=== PATIENT | female | born 1945 | race African-American/Black ===

== ENCOUNTER 2019-03-06 17:47 | Emergency (ER) | payer OTHER ==
[2019-03-06 17:55] VITALS: BMI 29.2
[2019-03-06] MEDS ORDERED: diphenhydrAMINE HCL 25 MG CAPSULE (FP) PO ONE ×2 (18:41→19:03)
[2019-03-06] MEDS ORDERED: BACITRACIN 15 GM TUBE TOPICAL OINTMENT TP ONE (18:42)
[2019-03-06] MEDS ORDERED: predniSONE 20 MG TABLET (UD) PO ONE (18:42)
--- NOTE | 2019-03-06 18:47 | PDOC ---
History of Present Illness - General Chief Complaint: Allergic Reaction Stated Complaint: SWOLLEN FACE Time Seen by Provider: 03/06/19 18:17 History Source: Patient, Family Exam Limitations: Language Barrier (Creole) - History of Present Illness Initial Comments: 03/06/19 18:46 Leslie Veronica is a 73F with PMH NIDDM and HTN presenting with allergic reaction to hair product. Patient was at [employer] to get a wig fitted 3 days [employer], used a new wig glue to fix wig to head. Began having headache, skin irritation, and facial swelling that worsened over the course of the last 3 days. L eyelid swelling spread to both eyes. Has had a headache that keeps her up at night and has decreased her appetite. Has not had itchiness or throat swelling, no hives or rash. Denies chest pain, SOB, wheezing, abd pain, LE edema, urinary sx, N/V, C/D, changes to vision/hearing. Past History - Past Medical History Allergies/Adverse Reactions: Allergies Allergy/AdvReac Type Severity Reaction Status Date / Time No Known Allergies Allergy Verified 03/06/19 17:55 Home Medications: Ambulatory Orders Atorvastatin Ca [Lipitor] 40 mg PO HS 03/06/19 Chlorthalidone 25 mg PO DAILY 03/06/19 Lisinopril [Prinivil -] 40 mg PO DAILY 03/06/19 Metoprolol Succinate 50 mg PO DAILY 03/06/19 metFORMIN HCL [Metformin HCl] 500 mg PO BID 03/06/19 COPD: No - Suicide/Smoking/Psychosocial Hx Smoking History: Never smoked Hx Alcohol Use: No Drug/Substance Use Hx: No Review of Systems - Review of Systems Able to Perform ROS?: Yes (translated by family) Is the patient limited Thai proficient: Yes Constitutional: No: Symptoms Reported HEENTM: No: Blurred Vision, Hearing Loss, Throat Swelling, Difficulty Swallowing Respiratory: No: Cough, Shortness of Breath, Wheezing Cardiac (ROS): No: Chest Pain, Edema, Lightheadedness, Palpitations ABD/GI: Yes: Poor Appetite. No: Constipated, Diarrhea, Nausea, Vomiting : No: Burning, Dysuria, Discharge, Frequency, Flank Pain, Hematuria, Incontinence Musculoskeletal: No: Symptoms Reported Integumentary: Yes: Erythema, Lesions, Lumps, Rash. No: Pruritus Neurological: Yes: Headache. No: Numbness, Paresthesia Endocrine: No: Symptoms Reported Hematologic/Lymphatic: No: Symptoms Reported All Other Systems: Reviewed and Negative *Physical Exam - Vital Signs Last Vital Signs Temp Pulse Resp BP Pulse Ox 99.0 F 96 H 16 185/90 H 99 03/06/19 17:52 03/06/19 17:52 03/06/19 17:52 03/06/19 17:52 03/06/19 17:52 - Physical Exam General Appearance: Yes: Nourished, Appropriately Dressed. No: Apparent Distress, Mild Distress HEENT: positive: EOMI, TREY, Normal Voice, Symmetrical, Pharynx Normal. negative: Scleral Icterus (R), Scleral Icterus (L), Muffled/Hoarse voice, Tonsillar Exudate, Tonsillar Erythema, Nasal Congestion Neck: positive: Trachea midline, Normal Thyroid, Supple. negative: Tender, Decreased range of motion, Lymphadenopathy (R), Lymphadenopathy (L) Respiratory/Chest: positive: Lungs Clear, Normal Breath Sounds. negative: Chest Tender, Respiratory Distress, Crackles, Rales, Rhonchi Cardiovascular: positive: Regular Rhythm, Regular Rate. negative: Murmur Gastrointestinal/Abdominal: positive: Normal Bowel Sounds, Soft. negative: Tender, Organomegaly Musculoskeletal: positive: Normal Inspection. negative: CVA Tenderness Extremity: positive: Normal Capillary Refill, Normal Inspection, Normal Range of Motion Integumentary: positive: Other (Has contact dermatitis lesions and desquamation to forehead on hairline with focal, rasied, tender lesion to L forehead. No other rash notable. No LE edema. Facial periorbital edema to both eyes.). negative: Jaundice, Hives Neurologic: positive: Fully Oriented, Alert, Normal Mood/Affect, Normal Response Medical Decision Making - Medical Decision Making 03/06/19 18:46 Leslie Veronica is a 73F with PMH NIDDM and HTN presenting with allergic reaction to hair product. Patient presentation not concerning for anaphylaxis or airway compromise, reaction started 2 days ago and is mostly contact dermatitis to face with some mild periorbital edema. Patient has not tried Benadryl, will give some now with 40mg prednisone and ice with bacitracin to cover lesion on forehead. Will reassess. 03/06/19 19:07 Patient has hx HTN, took Tylenol and medication for HTN earlier today and has no headache at this time. Says she has not been sleeping well which may be cause of headache. Low concern for hypertensive urgency. 03/06/19 19:36 Plan to send home with PCP f/u and wound care instructions. Signed out to Dr. Gonzalez. *DC/Admit/Observation/Transfer Diagnosis at time of Disposition: Contact dermatitis Qualifiers: Contact dermatitis type: irritant Contact dermatitis trigger: cosmetics Qualified Code(s): L24.3 - Irritant contact dermatitis due to cosmetics - Discharge Dispostion Disposition: HOME Condition at time of disposition: Stable Decision to Admit order: No - Referrals Referrals: Rubia Solis MD [Primary Care Provider] - - Patient Instructions Printed Discharge Instructions: DI for Adverse Drug Reaction -- Allergic Additional Instructions: Today you were evaluated for an allergic reaction to a hair product. Please avoid this hair product in the future! Please contact your chairman president and chief executive officer and figure out what the ingredient is that caused the reaction if you can. You can buy bacitracin cream, a type of antibiotic, at the drug store to put on the rash to keep it from getting infected. Please use Benadryl at night as directed on the box as needed for swelling of the eyes. Please follow-up with you primary doctor in the next 3 days for further care. If you experience trouble breathing, worsening headache, fever, nausea, vomiting , changes to your vision, or any other new or concerning symptoms, please return to the emergency room immediately. - Post Discharge Activity
--- NOTE | 2019-03-06 18:59 | PDOC ---
Documentation entered by Dave Costa SCRIBE, acting as scribe for Willow Mireles MD. Willow Mireles MD: This documentation has been prepared by the Igor estrada Daniel, SCRIBE, under my direction and personally reviewed by me in its entirety. I confirm that the documentation accurately reflects all work, treatment, procedures, and medical decision making performed by me. Attending Attestation - Resident Resident Name: Suresh Gastelum - ED Attending Attestation I have performed the following: I have examined & evaluated the patient, The case was reviewed & discussed with the resident, I agree w/resident's findings & plan, Exceptions are as noted - HPI HPI: 03/06/19 18:46 73-year-old female had a new wig applied on Thursday she had an adhesive hair product applied to her forehead to keep her wig in place and developed a contact dermatitis 03/06/19 18:50 The patient is a 73 year old female with a past medical history of HTN and non insulin dependent diabetes here today for evaluation of allergic reaction. The patient reports that she had a wig placed on thursday (03/04/19) and glue was used. She reports that developed an abscess on her left forehead which had purulent discharge. She also notes some facial edema and a headache. Patient denies lightheadedness. Denies fever, chills. Denies chest pain, shortness of breath. Denies nausea, vomiting, diarrhea, abdominal pain. Allergies: NKA PCP: Rubia Solis - Physicial Exam PE: 03/06/19 18:50 GENERAL: Well-appearing, well-nourished. No apparent distress. HEENT: Normocephalic, atraumatic. PERRL, EOM intact. CARDIOVASCULAR: Normal S1, S2. Regular rate and rhythm. PULMONARY: Clear to auscultation bilaterally. ABDOMEN: Soft, non-distended, non-tender. EXTREMITIES: Normal ROM in all four extremities. No gross deformities. SKIN: +left forehead desquamation. +periorbital edema. Warm, dry. NEUROLOGICAL: No focal neurological deficits. - Medical Decision Making 03/06/19 18:57 imp: contact dermatitis to hair product pt given bacitracin and benadrly
[2019-03-06] MEDS ORDERED: predniSONE 20 MG TABLET (UD) ONE (19:03)
[2019-03-06] MEDS ORDERED: BACITRACIN 0.9 GM PACKET ONE (19:04)
[2019-03-06 19:43] VITALS: BP 154/83; PULSE 90; TEMP 96
== END 2019-03-06 20:25 | disposition home or self-care (01) ==
LOC: JER 17:47
DX: T49.4X1A Poisoning by keratolytics, keratoplastics, and other hair treatment drugs and preparations, accidental (unintentional), initial encounter (principal); L24.5 Irritant contact dermatitis due to other chemical products; Y92.59 Other trade areas as the place of occurrence of the external cause
CPT/HCPCS: 99282-25

== ENCOUNTER 2019-03-13 01:05 | Inpatient (IN) | payer OTHER ==
[2019-03-13] MEDS ORDERED: VANCOMYCIN 1,000 MG in DEXTROSE 5%-WATER - 250 ML IVPB ONE (01:58)
[2019-03-13] MEDS ORDERED: CLINDAMYCIN 600MG PREMIX IVPB 600 MG/50 ML BAG IVPB ONE ×2 (01:58→02:06)
[2019-03-13] MEDS ORDERED: MORPHINE SULFATE 2 MG/ML VIAL IVPUSH ONE ×3 (01:58→17:54)
[2019-03-13] MEDS ORDERED: VANCOMYCIN 1 GRAM (PRE-DOCKED) 1,000 MG/250 ML BAG IVPB ONE (02:05)
[2019-03-13] MEDS ORDERED: MORPHINE SULFATE 2 MG/ML VIAL ONE (02:05)
[2019-03-13 02:28] LABS: BASO % 0.8 % (0-2.0); HEMATOCRIT 36.2 % (32.4-45.2); HEMOGLOBIN 11.6 GM/dL (10.7-15.3); LYMPH % 6.1 % (8-40); MEAN CELL VOLUME 84.6 fl (80-96); MEAN PLT VOLUME 10.2 fl (7.5-11.1); MONO % 10.6 % (3.8-10.2); NEUT % 82.5 % (42.8-82.8); PLATELET COUNT 411 K/MM3 (134-434); RBC 4.28 M/mm3 (3.60-5.2); RDW 13.1 % (11.6-15.6); WHITE BLOOD COUNT 15.1 K/mm3 (4.0-10.0)
--- NOTE | 2019-03-13 02:41 | PDOC ---
Attending Attestation - Resident Resident Name: Honey Elena - ED Attending Attestation I have performed the following: I have examined & evaluated the patient, The case was reviewed & discussed with the resident, I agree w/resident's findings & plan
--- NOTE | 2019-03-13 03:37 | PDOC ---
Documentation entered by Nik Cunningham SCRIBE, acting as scribe for Joy Garcia MD. Joy Garcia MD: This documentation has been prepared by the Marisa estrada Elijah, SCRIBE, under my direction and personally reviewed by me in its entirety. I confirm that the documentation accurately reflects all work, treatment, procedures, and medical decision making performed by me. Attending Attestation - Resident Resident Name: Honey Elena - ED Attending Attestation I have performed the following: I have examined & evaluated the patient, The case was reviewed & discussed with the resident, I agree w/resident's findings & plan - HPI HPI: 03/13/19 01:53 Patient is a 73 year old female with a significant past medical history of DM and HTN who presents to the ED with a Headache and worsening infection. Patient reports that she had bought a wig and began to develop an infection. Patient was seen in the where she was given steroids for the face swelling that she presented with. Patient then went to an Urgent Care x3 days later as the patient felt as if the infection was spreading and had drainage. The patient was given clindamycin. At this time the patient notes that she has felt as if the infections has not improved and that her headache has kept her from sleeping prompting the visit to the ED. Denies Fever, nausea and vomiting. Allergies: NKA PCP: - Physicial Exam PE: 03/13/19 03:36 Agree with resident exam. Pt has a boggy infection on her left frontal scalp. Pt may have a tinea capitis in the area, on top of the cellulitis. She has otherwise normal exam. - Medical Decision Making 03/13/19 03:36 Pt has a WBC count of 15; she will have a repeat chemistry drawn, as she had hemolyzed specimen. 03/13/19 03:38 Pt will be admitted because she neds IV abx, as she failed outpatient therapy with oral abx. She had been taking clinda x 2 days with no improvement.
--- NOTE | 2019-03-13 04:08 | PN ---
Teaching Attending Note Name of Resident: Elian Jaramillo ATTENDING PHYSICIAN STATEMENT I saw and evaluated the patient. I reviewed the resident's note and discussed the case with the resident. I agree with the resident's findings and plan as documented. SUBJECTIVE: Patient is a 73 year old woman with a PMH of NIDDM and HTN who presents to the ER with a headache and worsening infection. Patient reports that she had bought a wig and used a glue to attach the wig to her scalp. She wore it for about 2 weeks then noticed an area of redness in the left frontal scalp. It developed an abscess with associated edema. Patient was seen at [facility] on March 06 where she was given steroids, bacitracin and benadryl. Patient then went to an Urgent Care x3 days later as the patient felt as if the infection was spreading and had drainage. The patient was given clindamycin. At this time the patient notes that she has felt as if the infection has not improved and that her headache has kept her from sleeping prompting the visit to the ER. She has vision impairment in the left eye but no photophobia. Denies fever, nausea, vomiting, SOB, chest pain, abdomnal pain, dysuria or diarrhea. OBJECTIVE: Alert Vital Signs Period Temp Pulse Resp BP Sys/Marie Pulse Ox Last 24 Hr 97.7 F 90-93 18-18 139-150/68-69 98-98 HEENT: No Jaundice, eye redness or discharge, PERRLA, EOMI. A 2.5 inch x 1 inch raised area of cellulitis on left frontal scalp/upper face with islands of necrotic tissue with pus drainage. Mild edema of left side of face. Scar left side of mouth from childhood injury. External ears are normal and hearing is grossly intact. No nasal discharge. Neck: Supple, nontender. No palpable adenopathy or thyromegaly. No JVD Chest: Good effort. Clear to auscultation and percussion. Heart: Regular. No S3, rub or murmur Abdomen: Not distended, soft, nontender and no HSM. No rebound or guarding. Normal bowel sounds. Ext: Peripheral pulses intact. No leg edema. Skin: Warm and dry. No petechiae, rash or ecchymosis. Neuro: Alert. Oriented x3. CN 2-12 grossly intact. Sensation grossly intact in all four extremities and DTR are symmetric. Psych: Appropriate mood and affect. Good insight. Home Medications Medication Instructions Recorded Atorvastatin Ca [Lipitor] 40 mg PO HS 03/06/19 Chlorthalidone 25 mg PO DAILY 03/06/19 Lisinopril [Prinivil -] 40 mg PO DAILY 03/06/19 Metoprolol Succinate 50 mg PO DAILY 03/06/19 metFORMIN HCL [Metformin HCl] 500 mg PO BID 03/06/19 Current Medications Generic Name Dose Route Start Last Admin Trade Name Kalli PRN Reason Stop Dose Admin Atorvastatin Calcium 40 mg 03/13/19 22:00 Lipitor - PO HS ERIC Chlorthalidone 25 mg 03/13/19 10:00 [place] - PO DAILY ERIC Enoxaparin Sodium 40 mg 03/13/19 10:00 Lovenox - SQ DAILY ERIC Piperacillin Sod/Tazobactam 50 mls @ 100 mls/hr 03/13/19 04:45 Sod 3.375 gm/ Dextrose IVPB Q8H-IV ERIC Protocol Piperacillin Sod/Tazobactam 50 mls @ 100 mls/hr 03/13/19 04:45 Sod 3.375 gm/ Dextrose IVPB Q8H-IV ERIC Insulin Aspart 1 vial 03/13/19 07:00 Novolog Vial Sliding Scale - SQ ACHS [facility] Protocol Lisinopril 40 mg 03/13/19 10:00 Prinivil PO DAILY ERIC Metoprolol Succinate 50 mg 03/13/19 10:00 Toprol Xl - PO DAILY [facility] Abnormal Lab Results 03/13/19 03/13/19 02:16 04:00 WBC 15.1 H Absolute Neuts (auto) 12.4 H Lymphocytes % 6.1 L Monocytes % 10.6 H Sodium 131 L Chloride 94 L Anion Gap 7 L BUN 26.9 H Random Glucose 521 H* Alkaline Phosphatase 132 H Total Protein 6.3 L Albumin 2.4 L ASSESSMENT AND PLAN: 1. Scalp/Facial cellulitis and Abscess- Will get wound culture, CT face and scalp and treat with IV Vancomycin and Zosyn. Provide daily wound care and consult ID. 2. Hypoalbuminemia - Possibly due to combined effects of malnutrition and inflammation associated with comorbid chronic conditions. Will ensure adequate dietary protein intake and also consult statistical programmer. Will get urinalysis to rule out proteinuria. 3. Uncontrolled DM Will give a stat dose of SQ insulin and hydrate with IV NS. Will hold the home diabetes drugs and implement sliding scale insulin regimen. Provide comprehensive diabetes care with patient teaching and counseling about the importance of adherence to prescribed diabetes regimen, euglycemia, eye care and foot care. 4. Hypertension - Restart suitable outpatient antihypertensive drugs when clinically appropriate. Revise regimen to ensure [id number] excellent BP control and nurses' association counselor patient on the injurious effects of uncontrolled hypertension. Nonpharmacologic measures to control hypertension like weight loss , salt restriction and exercise discussed. Importance of adherence to treatment regimen and attainment of normotension emphasized. 5. DVT prophylaxis - Lovenox 40 mg SQ q 24 hours. 6. Advance directives - Full code
[2019-03-13 04:42] LABS: ALBUMIN 2.4 g/dl (3.4-5.0); BLOOD UREA NITROGEN 26.9 mg/dL (7-18); POTASSIUM 4.7 mmol/L (3.5-5.1); TOT PROT 6.3 g/dl (6.4-8.2)
--- NOTE | 2019-03-13 05:04 | PDOC ---
History of Present Illness - General Chief Complaint: Edema Stated Complaint: HEADACHE/HEAD CYST Time Seen by Provider: 03/13/19 01:35 - History of Present Illness Initial Comments: 03/13/19 04:55 73yo F hx DM and HTN presents from home c/o worsening headache and infection on forehead despite outpt abx. Pt wore new wig on 03/03/19 and had subsequent headache, face swelling, and skin irritation. Pt came to this ED on 03/06 and was given benadryl and bacitracin for dermatitis. Per note, pt had facial periorbital edema b/l, contact dermatitis lesions and desquamation of forehead on hairline with raised lesion of L forehead. Pt used bacitracin as instructed, but pt developed redness, pus, and warmth of wound and went to Urgent Care on the . Per daughter, pt was diagnosed with an infection and given muciprocin ointment and clindamycin. Pt has been taking Clindamycin 2x/day, although she was prescribed it every 8 hours. Pt has also been taking tylenol and advil for the head pain with minimal temporary improvement. Pain is constant, stabbing, overlying wound. Face swelling has resolved but pus and wound has gotten bigger. Denies F/C, N/V, dizziness, vision changes, CP, SOB, abdominal pain, D/C , blood in stool, dysuria, hematuria, numbness/tingling, weakness. Past History - Past Medical History Allergies/Adverse Reactions: Allergies Allergy/AdvReac Type Severity Reaction Status Date / Time No Known Allergies Allergy Verified 03/13/19 01:27 Home Medications: Ambulatory Orders Atorvastatin Ca [Lipitor] 40 mg PO HS 03/06/19 Chlorthalidone 25 mg PO DAILY 03/06/19 Lisinopril [Prinivil -] 40 mg PO DAILY 03/06/19 Metoprolol Succinate 50 mg PO DAILY 03/06/19 metFORMIN HCL [Metformin HCl] 500 mg PO BID 03/06/19 COPD: No Diabetes: Yes HTN: Yes - Suicide/Smoking/Psychosocial Hx Smoking History: Never smoked Information on smoking cessation initiated: Yes Hx Alcohol Use: No Drug/Substance Use Hx: No Review of Systems - Review of Systems Comments:: 03/13/19 05:43 Constitutional: Negative for chills, fever, fatigue. HENT: Positive for L forehead infected wound, pus drainage, erythema, warmth, and pain. Negative for sore throat, rhinorrhea, congestion. Eyes: Negative for visual disturbance. Respiratory: Negative for shortness of breath, cough, and wheezing. Cardiovascular: Negative for chest pain, palpitations, and leg swelling. Gastrointestinal: Negative for abdominal pain, blood in stool, constipation, diarrhea, nausea, and vomiting. Genitourinary: Negative for dysuria, flank pain, and hematuria. Musculoskeletal: Negative for myalgias, back pain, and neck pain. Skin: Positive for L forehead infected wound, pus drainage, erythema, warmth, and pain. Neurological: Negative for light-headedness, dizziness, syncope, weakness, numbness and headaches. Psychiatric/Behavioral: Negative for behavioral problems and confusion. *Physical Exam - Vital Signs Last Vital Signs Temp Pulse Resp BP Pulse Ox 97.7 F 93 H 18 150/69 98 03/13/19 01:24 03/13/19 01:56 03/13/19 01:56 03/13/19 01:56 03/13/19 01:56 - Physical Exam Comments: 03/13/19 05:46 Gen: Alert, NAD, comfortable-appearing. HEENT: +minimal edema L forehead, 1"x2" raised area of erythema and warmth with purulence with patches of healing tissue and necrotic tissue on L forehead. PERRL, EOMI, MMM, NCAT. No conjunctival pallor. Sclera are non-icteric. Oropharynx is clear. CV: Regular rate and rhythm. No murmurs, rubs, or gallops. PULM: No resp distress. CTAB, no wheezes, rales, or rhonchi. ABD: soft, NT/ND, no rebound tenderness or guarding, no CVA tenderness. BACK: No TTP of c/t/l-spine. No step-offs or deformities. MSK: No bony deformities. 2+ pulses in all extremities. NEURO: AAOx3. PERRL. No gross CN deficits. Strength and sensation grossly intact throughout. EXTREMITIES: No cyanosis. No clubbing. No edema. No calf tenderness. PSYCH: Normal mood and thought pattern. SKIN: Warm and dry. Normal capillary refill. No jaundice. Heart Score/ECG Review - ECG Impressions Comment:: 03/13/19 05:54 207: Sinus rhythm, 91bpm, no TWIs, no ST elevations or depressions, normal axis ED Treatment Course - LABORATORY CBC & Chemistry Diagram: 03/13/19 02:16 03/13/19 04:00 - ADDITIONAL ORDERS Additional order review: Laboratory Results 03/13/19 03/13/19 04:00 02:16 Sodium 131 L Cancelled Potassium 4.7 Cancelled Chloride 94 L Cancelled Carbon Dioxide 30 Cancelled Anion Gap 7 L Cancelled BUN 26.9 H Cancelled Creatinine 1.0 Cancelled Est GFR (CKD-EPI)AfAm 63.82 Cancelled Est GFR (CKD-EPI)NonAf 55.07 Cancelled Random Glucose 521 H* Cancelled Calcium 9.0 Cancelled Total Bilirubin 1.0 Cancelled AST 30 Cancelled ALT 23 Cancelled Alkaline Phosphatase 132 H Cancelled Total Protein 6.3 L Cancelled Albumin 2.4 L Cancelled 03/13/19 02:16 RBC 4.28 MCV 84.6 MCHC 32.0 RDW 13.1 MPV 10.2 Neutrophils % 82.5 Lymphocytes % 6.1 L Monocytes % 10.6 H Eosinophils % 0.0 Basophils % 0.8 - RADIOLOGY Radiology Studies Ordered: Category Date Time Status CHEST X-RAY PORTABLE* [RAD] Stat Radiology 03/13/19 01:58 Taken - Medications Given in the ED: ED Medications Discontinued Medications Generic Name Dose Route Start Last Admin Trade Name Freq PRN Reason Stop Dose Admin Clindamycin Phosphate 600 mg in 50 mls @ 100 mls/hr 03/13/19 01:58 03/13/19 02:23 Cleocin 600 Mg Premix Ivpb - IVPB 03/13/19 02:27 100 mls/hr ONCE ONE Administration Vancomycin HCl 1,000 mg/ 250 mls @ 250 mls/hr 03/13/19 01:58 03/13/19 03:02 Dextrose IVPB 03/13/19 02:57 250 mls/hr ONCE ONE Administration Protocol Morphine Sulfate 2 mg 03/13/19 01:58 03/13/19 02:23 Morphine Sulfate IVPUSH 03/13/19 01:59 2 mg ONCE ONE Administration Medical Decision Making - Medical Decision Making 03/13/19 04:56 73yo F hx DM and HTN presents from home c/o worsening headache and infection on forehead despite outpt abx. Pt wore new wig on 03/03/19 and had subsequent headache, face swelling, and skin irritation. Pt came to this ED on 03/06 and was given benadryl and bacitracin for dermatitis. Per note, pt had facial periorbital edema b/l, contact dermatitis lesions and desquamation of forehead on hairline with raised lesion of L forehead. Pt used bacitracin as instructed, but pt developed redness, pus, and warmth of wound and went to Urgent Care on the . Per daughter, pt was diagnosed with an infection and given muciprocin ointment and clindamycin. Pt has been taking Clindamycin 2x/day, although she was prescribed it every 8 hours. Pt has also been taking tylenol and advil for the head pain with minimal temporary improvement. Pain is constant, stabbing, overlying wound. Face swelling has resolved but pus and wound has gotten bigger. Denies F/C, N/V, dizziness, vision changes, CP, SOB, abdominal pain, D/C , blood in stool, dysuria, hematuria, numbness/tingling, weakness. Hemodynamically stable, afebrile. Cellulitis failing outpatient abx. No s/s of bacteremia. No s/s of necrotizing fasciitis. Some pus drainage but not enough to indicate I&D. -EKG -CBC, CMP, wound cx -CXR -Vanc, Clindamycin, Morphine -Dispo: admit for IV abx pending w/u 03/13/19 05:42 EKG reviewed. CXR reviewed. Labs reviewed. Of note, WBC 15.1, Na 131, Gluc 521. Pt admitted. *DC/Admit/Observation/Transfer Diagnosis at time of Disposition: Cellulitis - Discharge Dispostion Condition at time of disposition: Stable Decision to Admit order: Yes - Referrals Referrals: Rubia Solis MD [Primary Care Provider] - - Patient Instructions - Post Discharge Activity
[2019-03-13] MEDS ORDERED: PIPERACILLIN/TAZOB 3.375 GM 3.375 GM/50 ML BAG IVPB ONE (05:07)
[2019-03-13] MEDS ORDERED: INSULIN (NOVOLOG) ASPART 100 UNITS/ML 10ML VIAL SQ ONE ×2 (05:11→17:55)
[2019-03-13] MEDS: PIPERACILLIN/TAZOB 3.375 GM 3.375 GM in DEXTROSE 5%-WATER - 50 ML IVPB SCH ×3 (05:12→18:17)
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
[2019-03-13 05:56] LABS: PHOSPHOROUS 2.9 mg/dL (2.5-4.9)
[2019-03-13] MEDS ORDERED: INSULIN SLIDING SCALE (NOVOLOG) 1 VIAL SQ SCH (07:00)
[2019-03-13 08:52] LABS: BLOOD UREA NITROGEN 22.1 mg/dL (7-18); CALCIUM 9.8 mg/dL (8.5-10.1); POTASSIUM 4.4 mmol/L (3.5-5.1)
--- NOTE | 2019-03-13 09:37 | EKG ---
Test Reason : Blood Pressure : / mmHG Vent. Rate : 091 BPM Atrial Rate : 091 BPM P-R Int : 140 ms QRS Dur : 082 ms QT Int : 354 ms P-R-T Axes : 064 052 061 degrees QTc Int : 435 ms SINUS RHYTHM WITH FUSION COMPLEXES POSSIBLE LEFT ATRIAL ENLARGEMENT BORDERLINE ECG NO PREVIOUS ECGS AVAILABLE Confirmed by DESEAN LINK, RUTHY ([id number]) on 03/13/2019 9:36:49 AM Referred By: Confirmed By:RUTHY ANTON MD
[2019-03-13 09:41] VITALS: BMI 27.3
[2019-03-13] MEDS ORDERED: PT OWN MED DRAWER 7, Y5N ONE ×2 (09:47→10:02)
[2019-03-13] MEDS: ENOXAPARIN NA (PORCINE) 40 MG/0.4 ML DISP.SYRIN SQ SCH (09:51)
[2019-03-13] MEDS: LISINOPRIL 20 MG TABLET (FP) PO SCH (09:51)
[2019-03-13] MEDS ORDERED: PATIENT'S OWN MEDICATION (NON-FORMULARY) (Lisinopril [Prinivil -] 40 MG) PO SCH (10:00)
[2019-03-13] MEDS ORDERED: PIPERACILLIN/TAZOBACTAM 3.375 GM VIAL IVPB ONE ×2 (10:02→17:29)
[2019-03-13] MEDS ORDERED: DEXTROSE 5%-WATER - 50 ML IVPB ONE ×2 (10:02→17:29)
[2019-03-13] MEDS: CHLORTHALIDONE 25 MG TABLET PO SCH (11:41)
[2019-03-13] MEDS ORDERED: INSULIN (NOVOLOG) ASPART 100 UNITS/ML 10ML VIAL ONE ×3 (12:05→18:23)
[2019-03-13] MEDS: INSULIN SLIDING SCALE (NOVOLOG) 1 VIAL SQ SCH ×3 (12:12→21:57)
--- NOTE | 2019-03-13 13:53 | PN ---
Progress Note (short form) - Note Progress Note: SUBJECTIVE: Some improvement in pain and tenderness Left scalp. No fever/ chills. No nausea/vomiting. No headache. OBJECTIVE: Afebrile, hemodynamically Stable. Last Vital Signs Temp Pulse Resp BP Pulse Ox 99.2 F 91 H 20 131/64 99 03/13/19 11:00 03/13/19 11:37 03/13/19 11:37 03/13/19 11:37 03/13/19 08:20 HEENT- R frontal induration at area about hairline, some fluctuance and pussy discharge. Extends slightly onto forehead. Heart - S1, S2, RRR Lungs - clear to auscultation Abdomen - Soft, non-tender. Bowel Sounds normal. Extremities - no edema, no calf tenderness. Laboratory Results - last 24 hr 03/13/19 03/13/19 03/13/19 02:16 02:16 04:00 WBC 15.1 H RBC 4.28 Hgb 11.6 Hct 36.2 MCV 84.6 MCH 27.0 MCHC 32.0 RDW 13.1 Plt Count 411 MPV 10.2 Absolute Neuts (auto) 12.4 H Neutrophils % 82.5 Lymphocytes % 6.1 L Monocytes % 10.6 H Eosinophils % 0.0 Basophils % 0.8 Nucleated RBC % 0 Sodium Cancelled 131 L Potassium Cancelled 4.7 Chloride Cancelled 94 L Carbon Dioxide Cancelled 30 Anion Gap Cancelled 7 L BUN Cancelled 26.9 H Creatinine Cancelled 1.0 Est GFR (CKD-EPI)AfAm Cancelled 63.82 Est GFR (CKD-EPI)NonAf Cancelled 55.07 POC Glucometer Random Glucose Cancelled 521 H* Calcium Cancelled 9.0 Phosphorus Magnesium Total Bilirubin Cancelled 1.0 AST Cancelled 30 ALT Cancelled 23 Alkaline Phosphatase Cancelled 132 H Total Protein Cancelled 6.3 L Albumin Cancelled 2.4 L 03/13/19 03/13/19 03/13/19 04:50 04:51 07:45 WBC RBC Hgb Hct MCV MCH MCHC RDW Plt Count MPV Absolute Neuts (auto) Neutrophils % Lymphocytes % Monocytes % Eosinophils % Basophils % Nucleated RBC % Sodium 135 L Potassium 4.4 Chloride 98 Carbon Dioxide 31 Anion Gap 6 L BUN 22.1 H Creatinine 1.0 Est GFR (CKD-EPI)AfAm 63.82 Est GFR (CKD-EPI)NonAf 55.07 POC Glucometer 477 Random Glucose 310 H* Calcium 9.8 Phosphorus 2.9 Magnesium 2.0 Total Bilirubin AST ALT Alkaline Phosphatase Total Protein Albumin 03/13/19 12:02 WBC RBC Hgb Hct MCV MCH MCHC RDW Plt Count MPV Absolute Neuts (auto) Neutrophils % Lymphocytes % Monocytes % Eosinophils % Basophils % Nucleated RBC % Sodium Potassium Chloride Carbon Dioxide Anion Gap BUN Creatinine Est GFR (CKD-EPI)AfAm Est GFR (CKD-EPI)NonAf POC Glucometer 388 Random Glucose Calcium Phosphorus Magnesium Total Bilirubin AST ALT Alkaline Phosphatase Total Protein Albumin Current Medications Generic Name Dose Route Start Last Admin Trade Name Freq PRN Reason Stop Dose Admin Atorvastatin Calcium 40 mg 03/13/19 22:00 Lipitor - PO HS [facility] Chlorthalidone 25 mg 03/13/19 10:00 03/13/19 11:41 [place] - PO 25 mg DAILY ERIC Administration Enoxaparin Sodium 40 mg 03/13/19 10:00 03/13/19 09:51 Lovenox - SQ 40 mg DAILY ERIC Administration Piperacillin Sod/Tazobactam 50 mls @ 100 mls/hr 03/13/19 04:45 Sod 3.375 gm/ Dextrose IVPB Q8H-IV ERIC Protocol Piperacillin Sod/Tazobactam 50 mls @ 100 mls/hr 03/13/19 04:45 03/13/19 10:17 Sod 3.375 gm/ Dextrose IVPB 03/13/19 18:29 100 mls/hr Q8H-IV ERIC Administration Insulin Aspart 1 vial 03/13/19 04:49 03/13/19 12:12 Novolog Vial Sliding Scale - SQ 8 units ACHS ERIC Administration Protocol Lisinopril 40 mg 03/13/19 10:00 03/13/19 09:51 Prinivil PO 40 mg DAILY ERIC Administration Metoprolol Succinate 50 mg 03/13/19 10:00 03/13/19 09:51 Toprol Xl - PO 50 mg DAILY ERIC Administration Home Medications Medication Instructions Recorded Atorvastatin Ca [Lipitor] 40 mg PO HS 03/06/19 Chlorthalidone 25 mg PO DAILY 03/06/19 Lisinopril [Prinivil -] 40 mg PO DAILY 03/06/19 Metoprolol Succinate 50 mg PO DAILY 03/06/19 metFORMIN HCL [Metformin HCl] 500 mg PO BID 03/06/19 ASSESSMENT/PLAN: 73 year old female with histor of DM 2, HLD, HTN, presents with scalp cellulitis s/p tramatic wig removal with tearing of skin due to glue, failed outpatient therapy with Clindamycin. 1. Scalp cellulitis CT head - no acute intracranial findings, difuse subcutaneous edema with 2cm L frontal superficial abscess Leukocytosis - WBC 15 IV Zosyn. Received one dose IV Vancomycin in ED. ID consult. Surgery consult for eval for possible I and D Wound Cx pending. 2. DM 2 - uncontrolled. Persistent hyperglycemia. Metformin held. Will add Levemir 10 to sliding scale Novolog. 3. HTN - Continue Lisinopril 40 mg QD, Chlorthalidone 25 mg QD, Metoprolol succinate 50 mg QD. 4. HLD - continue Lipitor. DVT Px - Lovenox SQ Visit type - Emergency Visit Emergency Visit: Yes ED Registration Date: 03/13/19 Care time: The patient presented to the Emergency Department on the above date and was hospitalized for further evaluation of their emergent condition. - New Patient This patient is new to me today: Yes Date on this admission: 03/13/19 - Critical Care Critical Care patient: No - Discharge Referral Referred to [facility] Med P.C.: No
--- NOTE | 2019-03-13 14:24 | CONSULT ---
Consult Consult Specialty:: General Surgery Referred by:: Lorena Sylvester Reason for Consultation:: left forehead/scalp cellulitis with possible abscess - History of Present Illness Chief Complaint: left forehead/scalp pain with rash/wound/infection, itching History of Present Illness: 73yo [place] diabetic F with HTN, HLD, diabetic retinopathy s/p laser surgery but no other surgical history, recently returned from trip to [facility] with redness , swelling and pain at left frontal scalp onto forehead, initially with much more periorbital edema as well. She had a wig placed with adhesive glue ~01/24 before leaving on trip, and while there, had itching under front left part of it. She slowly itched and worked the wig back over a few days until it came off ~03/02, and she returned from the trip 03/04. Her son said when he met her at the airport, she had swelling in the area and both sides of her upper face/eye regions, which has since gone down a fair bit. She also had pain at the site, which is less now. 03/06, she came to our ER and was given Benadryl and one dose of steroid, topical bacitracin, and advised to use the bacitracin and benadryl and f/u with her PMD (notes indicate they believed the wig had been placed a few days prior with only a couple days of reaction). 03/09, she went to [facility] and was diagnosed with contact dermatitis, culture swab was taken, and she was given Rx for Clindamycin 300mg q8H (which she has been taking TWICE daily) and bactroban ointment BID, which they have been using. She still had significant pain, so came back to ER last night, and was admitted to medical service. CT showed cellulitis with possible underlying small (2cm) fluid collection and no bony changes. Glucose was high, and wbc was 15. Per son at bedside, who provided much of history (pt speaks Guatemalan), she also had F/C and sweating, especially earlier on. No N/V, + some mild blurred vision on left with the swelling (also with her DM). The swelling overall has gone down significantly over the last week. Surgery was asked to assess. ID is also consulted; the patient got Vanco and Clinda and Zosyn in ER, is now on Zosyn. She is seen and examined in bed, son at bedside helped with history and [place]alan communication. Daughter arrived as well, with reports from ER and [facility]. The pt denies headache at this time, but is a little tender at the area. She is tolerating diet. Last glucose was 288, for which she had sliding scale insulin. Son reports that at home, sugars are up and down. Her PMD is Rubia Solis, and she has an appt scheduled for Thursday. - History Source History Provided By: Family Member (son and daughter) Limitations to Obtaining History: Language Barrier (Guatemalan) - Past Medical History Cardio/Vascular: Yes: HTN, Hyperlipdemia Reproductive: Yes: Postmenopausal ENT: Yes: Other (diabetic retinopathy, ?glaucoma (no drops)) Endocrine: Yes: Diabetes Mellitus - Past Surgical History Additional Surgical History: laser eye surgery - Alcohol/Substance Use Hx Alcohol Use: No History of Substance Use: reports: None - Smoking History Smoking history: Never smoked Have you smoked in the past 12 months: No - Social History ADL: Independent Home Medications - Allergies Allergies/Adverse Reactions: Allergies Allergy/AdvReac Type Severity Reaction Status Date / Time No Known Allergies Allergy Verified 03/13/19 01:27 - Home Medications Home Medications: Ambulatory Orders Atorvastatin Ca [Lipitor] 40 mg PO HS 03/06/19 Chlorthalidone 25 mg PO DAILY 03/06/19 Lisinopril [Prinivil -] 40 mg PO DAILY 03/06/19 Metoprolol Succinate 50 mg PO DAILY 03/06/19 metFORMIN HCL [Metformin HCl] 500 mg PO BID 03/06/19 Home Medications (free text): Pt has been taking Clindamycin 300mg since 03/09 also, Rx for q8H, taking BID. Also using Bactroban ointment on site since then Family Disease History - Family Disease History Family History: Unremarkable (noncontributory) Review of Systems - Review of Systems Constitutional: reports: Chills, Fever Eyes: reports: Blurred Vision (at times, a little with the swelling from this problem; she sees an eye doctor for injections related to diabetic eye issues), Other (uses reading glasses). denies: Recent Change in Vision HENT: reports: Other (left forehead/scalp/periorbital swelling, erythema). denies: Difficult Swallowing, Throat Pain Neck: denies: Swollen Glands, Tenderness Cardiovascular: denies: Chest Pain, Palpitations Respiratory: denies: Cough, SOB Gastrointestinal: denies: Abdominal Pain, Nausea, Vomiting Genitourinary: denies: Burning, Dysuria Musculoskeletal: denies: Back Pain, Joint Pain Integumentary: reports: Erythema, Pruritis, Rash, Wound Neurological: reports: Headache (earlier, but not now). denies: Dizziness Physical Exam Vital Signs: Vital Signs Temperature 99.2 F 03/13/19 11:00 Pulse Rate 91 H 03/13/19 11:37 Respiratory Rate 20 03/13/19 11:37 Blood Pressure 131/64 03/13/19 11:37 O2 Sat by Pulse Oximetry (%) 99 03/13/19 08:20 Constitutional: Yes: Well Nourished, No Distress, Calm Eyes: Yes: Conjunctiva Clear, EOM Intact, Other (mild left periorbital edema) HENT: Yes: Normocephalic, Other (left forehead/scalp region with patchy necrotic /ulcerated skin rash, erythema, edema, mild tenderness, minimal/? fluctuance, mild thin drainage - yellow/brown/reddish; in hairline and a little onto forehead, maybe 6x8cm with surrounding erythema few more cm out) Neck: Yes: Supple, Trachea Midline Cardiovascular: Yes: Regular Rate and Rhythm Respiratory: Yes: Regular, CTA Bilaterally Gastrointestinal: Yes: Soft. No: Distention, Tenderness ...Rectal Exam: Yes: Deferred Renal/: No: CVA Tenderness - Left, CVA Tenderness - Right Musculoskeletal: No: Joint Stiffness, Joint Swelling Extremities: No: Cool, Cyanosis Edema: No Peripheral Pulses WNL: Yes Integumentary: Yes: Erythema, Rash, Other (see above - left forehead/scalp) Wound/Incision: Yes: Open to air, Draining (scant/mild as noted above), Reddened. No: Bleeding Neurological: Yes: Alert, Oriented Psychiatric: Yes: Alert, Oriented Labs: CBC, BMP 03/13/19 02:16 CMP Sodium 135 mmol/L (136-145) L 03/13/19 07:45 Potassium 4.4 mmol/L (3.5-5.1) 03/13/19 07:45 Chloride 98 mmol/L (98-107) 03/13/19 07:45 Carbon Dioxide 31 mmol/L (21-32) 03/13/19 07:45 Anion Gap 6 MMOL/L (8-16) L 03/13/19 07:45 BUN 22.1 mg/dL (7-18) H 03/13/19 07:45 Creatinine 1.0 mg/dL (0.55-1.3) 03/13/19 07:45 Est GFR (CKD-EPI)AfAm 63.82 03/13/19 07:45 Est GFR (CKD-EPI)NonAf 55.07 03/13/19 07:45 POC Glucometer 388 UNITS (80-120) 03/13/19 12:02 Random Glucose 310 mg/dL (74-106) H* 03/13/19 07:45 Calcium 9.8 mg/dL (8.5-10.1) 03/13/19 07:45 Phosphorus 2.9 mg/dL (2.5-4.9) 03/13/19 04:50 Magnesium 2.0 mg/dL (1.8-2.4) 03/13/19 04:50 Total Bilirubin 1.0 mg/dL (0.2-1) 03/13/19 04:00 AST 30 U/L (15-37) 03/13/19 04:00 ALT 23 U/L (13-61) 03/13/19 04:00 Alkaline Phosphatase 132 U/L (45-117) H 03/13/19 04:00 Total Protein 6.3 g/dl (6.4-8.2) L 03/13/19 04:00 Albumin 2.4 g/dl (3.4-5.0) L 03/13/19 04:00 Culture results from [facility] 03/09/19 - swab cx grew Pseudomonas Aeruginosa, sensitive to eleven listed abx, including Cipro/Levo, Cefepime, Piperacillin, carbapenems (faxed report placed on chart) Imaging - Results Cat Scan: Report Reviewed, Image Reviewed (head CT - images reviewed - cellulitis in region with possible small (~2cm) fluid collection beneath) Problem List - Problems (1) Cellulitis of scalp Assessment/Plan: admitted to medicine ID consulted pain meds prn - nonnarcotics first line keep head elevated called and discussed with plastic surgeon Dr. Solares from [facility] - agree with IV antibiotics per [facility] report, cx 03/09 grew Pseudomonas, sensitive pt is on Zosyn, ID on board would not open or debride at this time topical bacitracin or bactroban not likely to be of use for Pseudomonas could consider topical sulfamylon - need to keep away from eyes for now, would monitor on IV antibiotics maintain glucose in normal range recommend plastic surgery consultation for further management will discuss with medical team Thank you for the opportunity to participate in the care of this patient. Code(s): L03.811 - CELLULITIS OF HEAD [ANY PART, EXCEPT FACE] (2) Contact dermatitis due to adhesives Code(s): L23.1 - ALLERGIC CONTACT DERMATITIS DUE TO ADHESIVES Qualifiers: Contact dermatitis type: unspecified Qualified Code(s): L23.1 - Allergic contact dermatitis due to adhesives (3) Head and face pain Code(s): R51 - HEADACHE (4) Diabetes mellitus with skin complication, without long-term current use of insulin Code(s): E11.628 - TYPE 2 DIABETES MELLITUS WITH OTHER SKIN COMPLICATIONS Qualifiers: Diabetes mellitus type: type 2 Diabetes mellitus complication detail: with other skin complication Qualified Code(s): E11.628 - Type 2 diabetes mellitus with other skin complications (5) Hypertension Code(s): I10 - ESSENTIAL (PRIMARY) HYPERTENSION Qualifiers: Hypertension type: essential hypertension Qualified Code(s): I10 - Essential (primary) hypertension
--- NOTE | 2019-03-13 14:29 | PN ---
Progress Note (short form) - Note Progress Note: ID CONSULT DICTATED CELLULITIS R/O ST ABSCESS L FOREHEAD LEUKOCYTOSIS R/O SEPSIS SECONDARY TO SKIN SOURCE UNCONTROLLED DM OBTAIN BC SURGICAL EVAL EMPIRIC VANCOMYCIN/ ZOSYN DISCUSSED WITH SON AT BEDSIDE
[2019-03-13] MEDS ORDERED: PNEUMOC 13-VAL CONJ-DIP CRM/PF 0.5 ML DISP.SYRIN IM ONE (15:00)
[2019-03-13] MEDS: INSULIN (LEVEMIR) 100 UNITS/ML UNITS SQ SCH (15:14)
[2019-03-13] MEDS: VANCOMYCIN 1 GRAM (PRE-DOCKED) 1,000 MG/250 ML BAG IVPB SCH (15:16)
[2019-03-13] MEDS: ATORVASTATIN CA 40 MG TABLET (FP) PO SCH (22:01)
[2019-03-14] MEDS ORDERED: PIPERACILLIN/TAZOBACTAM 3.375 GM VIAL IVPB ONE ×3 (01:16→16:52)
[2019-03-14] MEDS ORDERED: DEXTROSE 5%-WATER - 50 ML IVPB ONE ×3 (01:16→16:52)
[2019-03-14] MEDS: PIPERACILLIN/TAZOB 3.375 GM 3.375 GM in DEXTROSE 5%-WATER - 50 ML IVPB SCH ×4 (01:20→17:03)
[2019-03-14] MEDS: VANCOMYCIN 1 GRAM (PRE-DOCKED) 1,000 MG/250 ML BAG IVPB SCH ×2 (02:05→15:13)
[2019-03-14] MEDS: INSULIN SLIDING SCALE (NOVOLOG) 1 VIAL SQ SCH ×5 (04:54→21:39)
[2019-03-14] MEDS ORDERED: INSULIN (NOVOLOG) ASPART 100 UNITS/ML 10ML VIAL ONE ×2 (06:43→10:42)
[2019-03-14 08:06] LABS: BASO % 0.5 % (0-2.0); HEMATOCRIT 32.3 % (32.4-45.2); HEMOGLOBIN 10.7 GM/dL (10.7-15.3); LYMPH % 10.1 % (8-40); MCH 27.5 pg (25.7-33.7); MEAN CELL VOLUME 83.5 fl (80-96); MEAN PLT VOLUME 10.2 fl (7.5-11.1); MONO % 12.3 % (3.8-10.2); NEUT % 77.1 % (42.8-82.8); PLATELET COUNT 428 K/MM3 (134-434); RBC 3.87 M/mm3 (3.60-5.2); RDW 12.8 % (11.6-15.6); WHITE BLOOD COUNT 16.8 K/mm3 (4.0-10.0)
[2019-03-14 08:15] LABS: ALBUMIN 2.4 g/dl (3.4-5.0); BILIRUBIN,TOTAL 1.6 mg/dL (0.2-1); BLOOD UREA NITROGEN 12.4 mg/dL (7-18); CALCIUM 9.5 mg/dL (8.5-10.1); CREATININE 0.8 mg/dL (0.55-1.3); MAGNESIUM 1.7 mg/dL (1.8-2.4); PHOSPHOROUS 3.3 mg/dL (2.5-4.9); POTASSIUM 3.8 mmol/L (3.5-5.1); TOT PROT 6.5 g/dl (6.4-8.2)
[2019-03-14] MEDS ORDERED: MAGNESIUM SULF 50% (8.12 MEQ/2 ML-1 GM VIAL) IVPB ONE (08:22)
[2019-03-14] MEDS ORDERED: PT OWN MED DRAWER 7, Y5N ONE ×4 (08:50→21:18)
[2019-03-14] MEDS: LISINOPRIL 20 MG TABLET (FP) PO SCH (09:07)
[2019-03-14] MEDS: INSULIN (LEVEMIR) 100 UNITS/ML UNITS SQ SCH (09:08)
[2019-03-14] MEDS: CHLORTHALIDONE 25 MG TABLET PO SCH (09:08)
[2019-03-14] MEDS: ENOXAPARIN NA (PORCINE) 40 MG/0.4 ML DISP.SYRIN SQ SCH (09:08)
[2019-03-14] MEDS ORDERED: INSULIN (LEVEMIR) 100 UNITS/ML UNITS SQ ONE ×4 (10:42→17:13)
--- NOTE | 2019-03-14 13:25 | CONSULT ---
Consult Consult Specialty:: Plastic surgery Referred by:: Dr Joy Garcia Reason for Consultation:: Abscess Infected wound Left forehead - History of Present Illness Chief Complaint: Pain Left forehead , swelling, pain.Symptoms started after application of wigx 1 month. History of Present Illness: 73 year old Polish female speaks Malian Creole Translation by son at Bedside , daughter 75 y/o F presenting to ED with 2 daughters (contacts in dispo) s/p traumatic wig removal. Pt used Rox Lace Glue for a wig last week and tore skin attempting to remove wig w/o appropriate hair glue thinner. In the same day pt reapplied wig to traumatized scalp. Pt received steroids on 03/06 and clindamycin 03/09 from an urgent care. Today the pt states her pain is located at the site of the trauma on the LEFT anterior parietal region of the scalp, started 1 week ago, burning/sharp character, nonradiating, associated w pulling wig glue off to aggressively, associated purulence and discharge, not made better by anything, and increasing severity/intensity over time. Pt denies NVFCD. ER course was notable for: (1) 538 random glucose (2) Purulent d/c (3) 2 days of clindamycin hx History Obtained from son, Past h/o Diabetes (not well controlled) Microbiology 03/13/19 02:16 Head Wound Culture - Preliminary Presumptive Ps Aeruginosa Selected Entries 03/14/19 09:20 Temperature 98.6 F Blood Pressure 132/66 Laboratory Tests 03/13/19 03/14/19 02:16 07:05 WBC 15.1 H 16.8 H Hct 36.2 32.3 L Absolute Neuts (auto) 12.4 H 13.0 H Monocytes % 10.6 H 12.3 H Measurements of Skin necrosis Left forehead Over 6.4x 4.5cm, with Central skin necrosis, covered with soft eschar Tender to touch 4/10 Skin soft eschar yellowish in color with some drainage Culture ; Presumptive Pseudomonas Plan : 1. Wound cleaning ordered 2. Dakin solution for cleaning 3. Apply Gentamycin ointment TID 4. Continue IV antibiotic therapy, responding to IV therapy. 5 Incision and drainage may be needed if above therapy does not responding Counselling : Son 1.Wound care mentioned . explained, will have a deep scar in area of skin necrosis, will need to follow up in wound clinic after discharge Will re-evaluate - History Source History Provided By: Family Member (son at bedside) - Past Medical History Cardio/Vascular: Yes: HTN, Hyperlipdemia ...: No ENT: Yes: Other (diabetic retinopathy, ?glaucoma (no drops)) Endocrine: Yes: Diabetes Mellitus - Past Surgical History Additional Surgical History: laser eye surgery - Alcohol/Substance Use Hx Alcohol Use: No History of Substance Use: reports: None - Smoking History Smoking history: Never smoked Have you smoked in the past 12 months: No - Social History ADL: Independent Home Medications - Allergies Allergies/Adverse Reactions: Allergies Allergy/AdvReac Type Severity Reaction Status Date / Time No Known Allergies Allergy Verified 03/13/19 01:27 - Home Medications Home Medications: Ambulatory Orders Atorvastatin Ca [Lipitor] 40 mg PO HS 03/06/19 Chlorthalidone 25 mg PO DAILY 03/06/19 Lisinopril [Prinivil -] 40 mg PO DAILY 03/06/19 Metoprolol Succinate 50 mg PO DAILY 03/06/19 metFORMIN HCL [Metformin HCl] 500 mg PO BID 03/06/19 Physical Exam Vital Signs: Vital Signs Temperature 98.6 F 03/14/19 09:20 Pulse Rate 105 H 03/14/19 09:20 Respiratory Rate 18 03/14/19 09:20 Blood Pressure 132/66 03/14/19 09:20 O2 Sat by Pulse Oximetry (%) 96 03/14/19 09:26 Labs: CBC, BMP 03/14/19 07:05 03/14/19 07:05
[2019-03-14] MEDS: GENTAMICIN SO4 0.1% TOPICAL OINTMENT 15 GM/TUBE TUBE TP SCH ×2 (15:14→21:24)
[2019-03-14] MEDS: SODIUM HYPOCHLORITE 0.25%- 473 ML BULK BOTTLE TP SCH (15:14)
[2019-03-14] MEDS: POLYMYXIN B SULFATE/TMP 10 ML OPHTHALMIC SOLUTION OU SCH ×3 (15:20→21:24)
--- NOTE | 2019-03-14 16:32 | PN ---
Teaching Attending Note Name of Resident: Vidhi Laws ATTENDING PHYSICIAN STATEMENT I saw and evaluated the patient. I reviewed the resident's note and discussed the case with the resident. I agree with the resident's findings and plan as documented. SUBJECTIVE: Some improvement in pain and tenderness Left scalp. Swelling spread - now involving L upper eyelid. No fever/chills. No nausea/vomiting. No headache. OBJECTIVE: Afebrile, Hemodynamically Stable. Last Vital Signs Temp Pulse Resp BP Pulse Ox 98.1 F 87 18 100/53 L 96 03/14/19 14:55 03/14/19 14:55 03/14/19 14:55 03/14/19 14:55 03/14/19 09:26 HEENT- large L frontal induration with discoloration and friability at area about hairline, some fluctuance and pustular discharge, extends slightly onto forehead. Some conjuctival irritation and discharge. Heart - S1, S2, RRR Lungs - clear to auscultation Abdomen - Soft, non-tender. Bowel Sounds normal. Extremities - no edema, no calf tenderness. Laboratory Results - last 24 hr 03/13/19 03/13/19 03/14/19 17:23 21:55 06:38 WBC RBC Hgb Hct MCV MCH MCHC RDW Plt Count MPV Absolute Neuts (auto) Neutrophils % Lymphocytes % Monocytes % Eosinophils % Basophils % Nucleated RBC % Sodium Potassium Chloride Carbon Dioxide Anion Gap BUN Creatinine Est GFR (CKD-EPI)AfAm Est GFR (CKD-EPI)NonAf POC Glucometer 422 136 306 Random Glucose Calcium Phosphorus Magnesium Total Bilirubin AST ALT Alkaline Phosphatase Total Protein Albumin 03/14/19 03/14/19 03/14/19 07:05 07:05 11:32 WBC 16.8 H RBC 3.87 Hgb 10.7 Hct 32.3 L MCV 83.5 MCH 27.5 MCHC 33.0 RDW 12.8 Plt Count 428 MPV 10.2 Absolute Neuts (auto) 13.0 H Neutrophils % 77.1 Lymphocytes % 10.1 D Monocytes % 12.3 H Eosinophils % 0.0 Basophils % 0.5 Nucleated RBC % 0 Sodium 130 L Potassium 3.8 Chloride 92 L Carbon Dioxide 29 Anion Gap 10 BUN 12.4 Creatinine 0.8 Est GFR (CKD-EPI)AfAm 83.59 Est GFR (CKD-EPI)NonAf 72.12 POC Glucometer 395 Random Glucose 283 H Calcium 9.5 Phosphorus 3.3 Magnesium 1.7 L Total Bilirubin 1.6 H AST 26 ALT 22 Alkaline Phosphatase 121 H Total Protein 6.5 Albumin 2.4 L Current Medications Generic Name Dose Route Start Last Admin Trade Name Freq PRN Reason Stop Dose Admin Acetaminophen 1,000 mg 03/13/19 16:23 Tylenol - PO Q6H PRN PAIN Atorvastatin Calcium 40 mg 03/13/19 22:00 03/13/19 22:01 Lipitor - PO 40 mg HS ERIC Administration Chlorthalidone 25 mg 03/13/19 10:00 03/14/19 09:08 Hygroton - PO 25 mg DAILY ERIC Administration Enoxaparin Sodium 40 mg 03/13/19 10:00 03/14/19 09:08 Lovenox - SQ 40 mg DAILY ERIC Administration Gentamicin Sulfate 1 applic 03/14/19 14:00 03/14/19 15:14 Garamycin 0.1% Ointment - TP 1 applic TID ERIC Administration Vancomycin HCl 1,000 mg in 250 mls @ 166.667 mls/hr 03/13/19 15:00 03/14/19 15:13 Vancomycin (Pre-Docked) IVPB 166.667 mls/hr Q12H ERIC Administration Protocol Piperacillin Sod/Tazobactam 50 mls @ 100 mls/hr 03/13/19 18:00 03/14/19 09:06 Sod 3.375 gm/ Dextrose IVPB 100 mls/hr Q8H-IV ERIC Administration Protocol Insulin Aspart 1 vial 03/13/19 04:49 03/14/19 11:33 Novolog Vial Sliding Scale - SQ 10 units ACHS ERIC Administration Protocol Insulin Detemir 10 units 03/13/19 14:00 03/14/19 09:08 Levemir Vial SQ 10 units DAILY ERIC Administration Lisinopril 40 mg 03/13/19 10:00 03/14/19 09:07 Prinivil PO 40 mg DAILY ERIC Administration Metoprolol Succinate 50 mg 03/13/19 10:00 03/14/19 09:07 Toprol Xl - PO 50 mg DAILY ERIC Administration Polymyxin/Trimethoprim Sulfate 1 drop 03/14/19 10:35 03/14/19 15:20 Polytrim Opthalmic Solution - OU 1 drop Q4HWA ERIC Administration Sodium Hypochlorite 1 applic 03/14/19 13:30 03/14/19 15:14 Dakin's Solution 0.25% (Half-Strength) - TP 1 applic DAILY ERIC Administration Home Medications Medication Instructions Recorded Atorvastatin Ca [Lipitor] 40 mg PO HS 03/06/19 Chlorthalidone 25 mg PO DAILY 03/06/19 Lisinopril [Prinivil -] 40 mg PO DAILY 03/06/19 Metoprolol Succinate 50 mg PO DAILY 03/06/19 metFORMIN HCL [Metformin HCl] 500 mg PO BID 03/06/19 ASSESSMENT/PLAN: 73 year old female with history of DM 2, HLD, HTN, presents with scalp cellulitis s/p traumatic wig removal with tearing of skin due to glue, failed outpatient therapy with Clindamycin. 1. Scalp Cellulitis/Skin necrosis CT head - no acute intracranial findings, diffuse subcutaneous edema with 2cm L frontal superficial abscess Leukocytosis - WBC still elevated, 16.4 Wound cx positve for Pseudomonas ID consulted - on IV Zosyn/Vanco for now. Surgery consulted - recommended Plastic Surgery consult - seen today by Dr. Cheung, with specific recommendations for wound care/cleaning conservative management with IV abx and topical Gentamycin, with need for ongoing wound care (after discharge). 2. Acute L conjuctiitis - no visual disturbance Topical Polytrim drops. 3. DM 2 - uncontrolled. Persistent hyperglycemia. Metformin held. Will increase Levemir to 13 units in addition to sliding scale Novolog. 4. HTN - Continue Lisinopril 40 mg QD, Chlorthalidone 25 mg QD, Metoprolol Succinate 50 mg QD. 5. HLD - continue Lipitor. DVT Px - Lovenox SQ
[2019-03-14] MEDS: ATORVASTATIN CA 40 MG TABLET (FP) PO SCH (21:24)
--- NOTE | 2019-03-14 21:42 | PN ---
Physical Exam: SUBJECTIVE: Patient seen and examined. She reports increased left eye lid swelling in last few hours, especially. Pt denies fever or chills. No scalp pain unless palpating. Son at bedside. OBJECTIVE: Vital Signs Period Temp Pulse Resp BP Sys/Marie Pulse Ox Last 24 Hr 98.1 F-100.1 F 87-108 18-20 100-151/53-84 96 GENERAL: The patient is awake, alert, and fully oriented, in no acute distress. HEAD: left frontal scalp skin necrosis, with yellowish eschar EYES: PERRL, extraocular movements intact, sclera anicteric, left conjunctiva injected. significant left upper and lower lid swelling with mild erythema. ENT: Ears normal, nares patent, moist mucous membranes. NECK: Trachea midline, full range of motion, supple. LUNGS: Breath sounds equal, clear to auscultation bilaterally, no wheezes, no crackles, no accessory muscle use. HEART: Regular rate and rhythm, S1, S2 without murmur, rub or gallop. ABDOMEN: Soft, nontender, nondistended, normoactive bowel sounds EXTREMITIES: 2+ pulses, warm, well-perfused, no edema. NEUROLOGICAL: Cranial nerves II through XII grossly intact. Normal speech, gait not observed. PSYCH: Normal mood, normal affect. SKIN: Warm, dry, normal turgor, no rashes or lesions noted, except as stated above Laboratory Results - last 24 hr 03/13/19 03/14/19 03/14/19 21:55 06:38 07:05 WBC 16.8 H RBC 3.87 Hgb 10.7 Hct 32.3 L MCV 83.5 MCH 27.5 MCHC 33.0 RDW 12.8 Plt Count 428 MPV 10.2 Absolute Neuts (auto) 13.0 H Neutrophils % 77.1 Lymphocytes % 10.1 D Monocytes % 12.3 H Eosinophils % 0.0 Basophils % 0.5 Nucleated RBC % 0 Sodium Potassium Chloride Carbon Dioxide Anion Gap BUN Creatinine Est GFR (CKD-EPI)AfAm Est GFR (CKD-EPI)NonAf POC Glucometer 136 306 Random Glucose Calcium Phosphorus Magnesium Total Bilirubin AST ALT Alkaline Phosphatase Total Protein Albumin 03/14/19 03/14/19 03/14/19 07:05 11:32 16:57 WBC RBC Hgb Hct MCV MCH MCHC RDW Plt Count MPV Absolute Neuts (auto) Neutrophils % Lymphocytes % Monocytes % Eosinophils % Basophils % Nucleated RBC % Sodium 130 L Potassium 3.8 Chloride 92 L Carbon Dioxide 29 Anion Gap 10 BUN 12.4 Creatinine 0.8 Est GFR (CKD-EPI)AfAm 83.59 Est GFR (CKD-EPI)NonAf 72.12 POC Glucometer 395 407 Random Glucose 283 H Calcium 9.5 Phosphorus 3.3 Magnesium 1.7 L Total Bilirubin 1.6 H AST 26 ALT 22 Alkaline Phosphatase 121 H Total Protein 6.5 Albumin 2.4 L Active Medications Generic Name Dose Route Start Last Admin Trade Name Freq PRN Reason Stop Dose Admin Acetaminophen 1,000 mg 03/13/19 16:23 Tylenol - PO Q6H PRN PAIN Atorvastatin Calcium 40 mg 03/13/19 22:00 03/14/19 21:24 Lipitor - PO 40 mg HS ERIC Administration Chlorthalidone 25 mg 03/13/19 10:00 03/14/19 09:08 Hygroton - PO 25 mg DAILY ERIC Administration Enoxaparin Sodium 40 mg 03/13/19 10:00 03/14/19 09:08 Lovenox - SQ 40 mg DAILY ERIC Administration Gentamicin Sulfate 1 applic 03/14/19 14:00 03/14/19 21:24 Garamycin 0.1% Ointment - TP 1 applic TID ERIC Administration Vancomycin HCl 1,000 mg in 250 mls @ 166.667 mls/hr 03/13/19 15:00 03/14/19 15:13 Vancomycin (Pre-Docked) IVPB 166.667 mls/hr Q12H ERIC Administration Protocol Piperacillin Sod/Tazobactam 50 mls @ 100 mls/hr 03/13/19 18:00 03/14/19 17:03 Sod 3.375 gm/ Dextrose IVPB 100 mls/hr Q8H-IV ERIC Administration Protocol Insulin Aspart 1 vial 03/13/19 04:49 03/14/19 21:39 Novolog Vial Sliding Scale - SQ 10 units ACHS ERIC Administration Protocol Insulin Detemir 13 units 03/15/19 10:00 Levemir Vial SQ DAILY ERIC Lisinopril 40 mg 03/13/19 10:00 03/14/19 09:07 Prinivil PO 40 mg DAILY ERIC Administration Metoprolol Succinate 50 mg 03/13/19 10:00 03/14/19 09:07 Toprol Xl - PO 50 mg DAILY ERIC Administration Polymyxin/Trimethoprim Sulfate 1 drop 03/14/19 10:35 03/14/19 21:24 Polytrim Opthalmic Solution - OU 1 drop Q4HWA ERIC Administration Sodium Hypochlorite 1 applic 03/14/19 13:30 03/14/19 15:14 Dakin's Solution 0.25% (Half-Strength) - TP 1 applic DAILY ERIC Administration ASSESSMENT/PLAN: Ms. Noemy Veronica is a 73yo female with history of DM, HTN, HLD who presents with scalp cellulitis s/p traumatic wig removal with tearing of skin from glue. Pt was on clindamycin and steroids as outpt but failed tx. #left frontal scalp cellulitis CT head showed no acute parenchymal pathology, positive for 2cm left frontal superficial abscess. WBC 16.8. Wound culture positive for pseudomonas. -Vanc/Zosyn day 2 -ID on board -CBC -surgery consulted who recommended plastics consult- wound cleaning, gentamycin application TID, I&D if not improving -wound care as outpt #left eye conjunctivitis Pt has significant eyelid swelling that began in the last day. No visual problems. -Polytrim drops OU #DM, type 2, uncontrolled BG 477 max last day, could be contributing to delayed wound healing -increase Levemir to 13U -continue SSI and BGM -will need tighter control as outpt #hyponatremia 130. BG elevated. -BMP #HTN 130s-150s/60s-80s -continue lisinopril, chlorthalidone, Lopressor #HLD -continue atorvastatin FEN PO fluids monitor lytes, Na Diabetic, sodium-controlled diet DVT prophylaxis Lovenox Visit type - Emergency Visit Emergency Visit: Yes ED Registration Date: 03/13/19 Care time: The patient presented to the Emergency Department on the above date and was hospitalized for further evaluation of their emergent condition. - New Patient This patient is new to me today: Yes Date on this admission: 03/14/19 - Critical Care Critical Care patient: No - Discharge Referral Referred to [facility] Med P.C.: No ATTENDING PHYSICIAN STATEMENT I saw and evaluated the patient. I reviewed the resident's note and discussed the case with the resident. I agree with the resident's findings and plan as documented. SUBJECTIVE: OBJECTIVE: ASSESSMENT AND PLAN:
[2019-03-15] MEDS ORDERED: PIPERACILLIN/TAZOBACTAM 3.375 GM VIAL IVPB ONE ×3 (02:06→17:22)
[2019-03-15] MEDS ORDERED: DEXTROSE 5%-WATER - 50 ML IVPB ONE ×3 (02:07→17:23)
[2019-03-15] MEDS: ACETAMINOPHEN 500 MG TABLET (FP) PO PRN ×2 (02:10→22:28)
[2019-03-15] MEDS: PIPERACILLIN/TAZOB 3.375 GM 3.375 GM in DEXTROSE 5%-WATER - 50 ML IVPB SCH ×3 (02:11→17:35)
[2019-03-15] MEDS: VANCOMYCIN 1 GRAM (PRE-DOCKED) 1,000 MG/250 ML BAG IVPB SCH ×2 (03:39→16:44)
[2019-03-15] MEDS: POLYMYXIN B SULFATE/TMP 10 ML OPHTHALMIC SOLUTION OU SCH ×5 (06:35→22:30)
[2019-03-15] MEDS: GENTAMICIN SO4 0.1% TOPICAL OINTMENT 15 GM/TUBE TUBE TP SCH ×3 (06:35→22:30)
[2019-03-15] MEDS: INSULIN SLIDING SCALE (NOVOLOG) 1 VIAL SQ SCH ×4 (06:36→22:29)
[2019-03-15 07:39] LABS: BASO % 0.8 % (0-2.0); EOS % 0.9 % (0-4.5); HEMATOCRIT 30.6 % (32.4-45.2); HEMOGLOBIN 10.1 GM/dL (10.7-15.3); LYMPH % 14.8 % (8-40); MCH 27.6 pg (25.7-33.7); MCHC 33.1 g/dl (32.0-36.0); MEAN CELL VOLUME 83.3 fl (80-96); MEAN PLT VOLUME 9.8 fl (7.5-11.1); MONO % 14.4 % (3.8-10.2); NEUT % 69.1 % (42.8-82.8); PLATELET COUNT 419 K/MM3 (134-434); RBC 3.67 M/mm3 (3.60-5.2); RDW 12.6 % (11.6-15.6); WHITE BLOOD COUNT 12.9 K/mm3 (4.0-10.0)
[2019-03-15 07:42] LABS: BLOOD UREA NITROGEN 18.3 mg/dL (7-18); CALCIUM 9.5 mg/dL (8.5-10.1); CREATININE 0.9 mg/dL (0.55-1.3); POTASSIUM 3.6 mmol/L (3.5-5.1)
[2019-03-15] MEDS ORDERED: PT OWN MED DRAWER 7, Y5N ONE ×2 (09:29→11:35)
[2019-03-15] MEDS: LISINOPRIL 20 MG TABLET (FP) PO SCH (09:36)
[2019-03-15] MEDS: ENOXAPARIN NA (PORCINE) 40 MG/0.4 ML DISP.SYRIN SQ SCH (09:37)
[2019-03-15] MEDS: CHLORTHALIDONE 25 MG TABLET PO SCH (09:37)
[2019-03-15] MEDS: SODIUM HYPOCHLORITE 0.25%- 473 ML BULK BOTTLE TP SCH (09:39)
[2019-03-15] MEDS ORDERED: INSULIN (LEVEMIR) 100 UNITS/ML UNITS SQ SCH (10:00)
[2019-03-15] MEDS ORDERED: INSULIN (LEVEMIR) 100 UNITS/ML UNITS SQ ONE (10:29)
[2019-03-15] MEDS ORDERED: INSULIN (NOVOLOG) ASPART 100 UNITS/ML 10ML VIAL ONE ×5 (11:37→22:15)
[2019-03-15] MEDS ORDERED: diphenhydrAMINE HCL 25 MG CAPSULE (FP) PO ONE (12:15)
[2019-03-15] MEDS ORDERED: ARTIFICIAL TEARS (POLYVINYL ALCOHOL) OPTH DROPS OU ONE (13:00)
--- NOTE | 2019-03-15 14:38 | PN ---
Teaching Attending Note Name of Resident: Nii Mills ATTENDING PHYSICIAN STATEMENT I saw and evaluated the patient. I reviewed the resident's note and discussed the case with the resident. I agree with the resident's findings and plan as documented. SUBJECTIVE:minor pain at the infected site. denies Cp, SOB, fever, chills, N/V/C /D, blurred vision or pain moving the eye, no photophobia OBJECTIVE: Last Vital Signs Temp Pulse Resp BP Pulse Ox 98.3 F 82 18 118/59 L 94 L 03/15/19 08:21 03/15/19 08:21 03/15/19 08:21 03/15/19 08:21 03/15/19 09:10 General NAD HEENT periorbital swelling of the L eye most noted on the eyelid. not tender, EOMI, PERRL, no drainage noted, L frontal scalp adjacent to hair line. with 5cm fluctuant region with central necrosis with no active drainage. area is tender CV S1 S2 RRR no murmur/rub/gallop Lungs CTA B/L no wheezing/rales/rhonchi ASSESSMENT AND PLAN: 73 year old female with history of DM 2, HLD, HTN, presents with scalp cellulitis s/p traumatic wig removal with tearing of skin due to glue, failed outpatient therapy with Clindamycin. 1. Scalp Cellulitis/Skin necrosis- failed outpatient treatment. Wcx + pseudomonas with amaro-sensitivity. on vanco and zosyn day 3. local wound care per plastics with dakins solution, gentamyicn ointment. if does not respond may need surgical debridement. plastics on board. 2. Acute L conjuctiitis - no visual disturbance. cont with ggts Topical Polytrim drops. 3. DM 2 - uncontrolled. levemir increased. adjust as needed to optimize control. 4. HTN - Continue Lisinopril 40 mg QD, Chlorthalidone 25 mg QD, Metoprolol Succinate 50 mg QD. 5. HLD - continue Lipitor. 6. DVT Px - Lovenox SQ 7. spoke with daughter present at bedside. all questions answered.
--- NOTE | 2019-03-15 15:45 | PN ---
Physical Exam: SUBJECTIVE: 73 y/o F w left frontoparietal scalp wound and cellulitis from traumatic wig removal seen at bedside today. She states her eye is swellign but does not have difficulty moving eye or eye pain. She has no complaints about her vision. She reports only a little pain. She was seen by Plastic surgeon Dr. Cheung yesterday. She is also on IV antibiotics per ID. She denies NVFCD, blurred vision, pain moving the eye, and photophobia. OBJECTIVE: Vital Signs Period Temp Pulse Resp BP Sys/Marie Pulse Ox Last 24 Hr 97.7 F-99.6 F 82-90 16-18 118-150/59-70 94-95 GENERAL: The patient is awake, alert, and fully oriented, in no acute distress. HEAD: Normocephalic with fontoparietal necrotic skin areas, draining purulence in multiple small spots, now with blackened area of soft eschar centrally. EYES: LEFT eyelid is also edematous. PERRL, extraocular movements intact, sclera anicteric, conjunctiva clear. No ptosis. ENT: Ears normal, nares patent, oropharynx clear without exudates, moist mucous membranes. NECK: Trachea midline, full range of motion, supple. LUNGS: Breath sounds equal, clear to auscultation bilaterally, no wheezes, no crackles, no accessory muscle use. HEART: Regular rate and rhythm, S1, S2 without murmur, rub or gallop. ABDOMEN: Soft, nontender, nondistended, normoactive bowel sounds, no guarding, no rebound, no hepatosplenomegaly, no masses. EXTREMITIES: 2+ pulses, warm, well-perfused, no edema. NEUROLOGICAL: Cranial nerves II through XII grossly intact. Normal speech, gait not observed. PSYCH: Normal mood, normal affect. SKIN: Warm, dry, normal turgor, no rashes or lesions noted Laboratory Results - last 24 hr 03/14/19 03/14/19 03/15/19 16:57 21:36 06:00 WBC RBC Hgb Hct MCV MCH MCHC RDW Plt Count MPV Absolute Neuts (auto) Neutrophils % Lymphocytes % Monocytes % Eosinophils % Basophils % Nucleated RBC % Sodium 134 L Potassium 3.6 Chloride 95 L Carbon Dioxide 32 Anion Gap 7 L BUN 18.3 H Creatinine 0.9 Est GFR (CKD-EPI)AfAm 72.49 Est GFR (CKD-EPI)NonAf 62.55 POC Glucometer 407 394 Random Glucose 184 H Calcium 9.5 03/15/19 03/15/19 03/15/19 06:34 06:35 11:20 WBC 12.9 H RBC 3.67 Hgb 10.1 L Hct 30.6 L MCV 83.3 MCH 27.6 MCHC 33.1 RDW 12.6 Plt Count 419 MPV 9.8 Absolute Neuts (auto) 8.9 H Neutrophils % 69.1 Lymphocytes % 14.8 D Monocytes % 14.4 H Eosinophils % 0.9 D Basophils % 0.8 Nucleated RBC % 0 Sodium Potassium Chloride Carbon Dioxide Anion Gap BUN Creatinine Est GFR (CKD-EPI)AfAm Est GFR (CKD-EPI)NonAf POC Glucometer 188 265 Random Glucose Calcium Active Medications Acetaminophen (Tylenol -) 1,000 mg PO Q6H PRN PRN Reason: PAIN Last Admin: 03/15/19 02:10 Dose: 1,000 mg Atorvastatin Calcium (Lipitor -) 40 mg PO HS [facility] Last Admin: 03/14/19 21:24 Dose: 40 mg Chlorthalidone (Hygroton -) 25 mg PO DAILY [facility] Last Admin: 03/15/19 09:37 Dose: 25 mg Enoxaparin Sodium (Lovenox -) 40 mg SQ DAILY [facility] Last Admin: 03/15/19 09:37 Dose: 40 mg Gentamicin Sulfate (Garamycin 0.1% Ointment -) 1 applic TP TID [facility] Last Admin: 03/15/19 14:59 Dose: 1 applic Piperacillin Sod/Tazobactam (Sod 3.375 gm/ Dextrose) 50 mls @ 100 mls/hr IVPB Q8H-IV [facility]; Protocol Last Admin: 03/15/19 17:35 Dose: 100 mls/hr Insulin Aspart (Novolog Vial Sliding Scale -) 1 vial SQ ACHS [facility]; Protocol Last Admin: 03/15/19 16:52 Dose: 8 units Insulin Detemir (Levemir Vial) 13 units SQ DAILY [facility] Last Admin: 03/15/19 09:38 Dose: 13 units Lisinopril (Prinivil) 40 mg PO DAILY [facility] Last Admin: 03/15/19 09:36 Dose: 40 mg Metoprolol Succinate (Toprol Xl -) 50 mg PO DAILY [facility] Last Admin: 03/15/19 09:37 Dose: 50 mg Polymyxin/Trimethoprim Sulfate (Polytrim Opthalmic Solution -) 1 drop OU Q4HWA [facility] Last Admin: 03/15/19 17:35 Dose: 1 drop Sodium Hypochlorite (Dakin's Solution 0.25% (Half-Strength) -) 1 applic TP DAILY [facility] Last Admin: 03/15/19 09:39 Dose: 1 applic ASSESSMENT/PLAN: 73 y/o F w PMH DM 2, HLD, HTN, presents with scalp cellulitis s/p traumatic wig removal with tearing of skin due to glue, failed outpatient therapy with clindamycin. # Scalp Cellulitis/skin necrosis - Failed outpatient treatment - Wound cx +pseudomonas with amaro-sensitivity - On vanco and zosyn day 3 - Local wound care per plastics with dakins solution, gentamyicn ointment - If does not respond may need surgical debridement. Plastics on board. # Acute LEFT conjuctiitis - No visual disturbance. - Cont with ggts - Topical Polytrim drops. # DM 2 - Uncontrolled. - Levemir increased. - Adjust as needed to optimize control. # HTN - Continue Lisinopril 40 mg QD, Chlorthalidone 25 mg QD, Metoprolol Succinate 50 mg QD. # HLD - Cont. Lipitor # DVT prophylaxis - Lovenox # Disposition - Full code Nii Mills MD Visit type - Emergency Visit Emergency Visit: No - New Patient This patient is new to me today: No - Critical Care Critical Care patient: No - Discharge Referral Referred to [facility] Med P.C.: No ATTENDING PHYSICIAN STATEMENT I saw and evaluated the patient. I reviewed the resident's note and discussed the case with the resident. I agree with the resident's findings and plan as documented. SUBJECTIVE: OBJECTIVE: ASSESSMENT AND PLAN:
--- NOTE | 2019-03-15 17:57 | PN ---
Progress Note, Physician History of Present Illness: Patient with left frontoparietal scalp wound and cellulitis from traumatic wig removal without glue solvent, infected with Pseudomonas, with overlying necrotic skin areas and possible underlying abscess. Draining purulence in multiple small spots, now with blackened area of soft eschar centrally. Pt seen and examined in bed, daughter at bedside. She reports only a little pain. She was seen by Plastic surgeon Dr. Cheung yesterday. Wound is being treated with Dakin's solution for cleansing and Gentamycin ointment. She is also on IV antibiotics per ID. Today, left eyelid is also edematous. - Current Medication List Current Medications: Active Medications Acetaminophen (Tylenol -) 1,000 mg PO Q6H PRN PRN Reason: PAIN Last Admin: 03/15/19 02:10 Dose: 1,000 mg Atorvastatin Calcium (Lipitor -) 40 mg PO HS [facility] Last Admin: 03/14/19 21:24 Dose: 40 mg Chlorthalidone (Hygroton -) 25 mg PO DAILY [facility] Last Admin: 03/15/19 09:37 Dose: 25 mg Enoxaparin Sodium (Lovenox -) 40 mg SQ DAILY [facility] Last Admin: 03/15/19 09:37 Dose: 40 mg Gentamicin Sulfate (Garamycin 0.1% Ointment -) 1 applic TP TID [facility] Last Admin: 03/15/19 14:59 Dose: 1 applic Piperacillin Sod/Tazobactam (Sod 3.375 gm/ Dextrose) 50 mls @ 100 mls/hr IVPB Q8H-IV [facility]; Protocol Last Admin: 03/15/19 17:35 Dose: 100 mls/hr Insulin Aspart (Novolog Vial Sliding Scale -) 1 vial SQ ACHS [facility]; Protocol Last Admin: 03/15/19 16:52 Dose: 8 units Insulin Detemir (Levemir Vial) 13 units SQ DAILY [facility] Last Admin: 03/15/19 09:38 Dose: 13 units Lisinopril (Prinivil) 40 mg PO DAILY [facility] Last Admin: 03/15/19 09:36 Dose: 40 mg Metoprolol Succinate (Toprol Xl -) 50 mg PO DAILY [facility] Last Admin: 03/15/19 09:37 Dose: 50 mg Polymyxin/Trimethoprim Sulfate (Polytrim Opthalmic Solution -) 1 drop OU Q4HWA [facility] Last Admin: 03/15/19 17:35 Dose: 1 drop Sodium Hypochlorite (Dakin's Solution 0.25% (Half-Strength) -) 1 applic TP DAILY [facility] Last Admin: 03/15/19 09:39 Dose: 1 applic - Objective Vital Signs: Vital Signs Temperature 98.7 F 03/15/19 15:48 Pulse Rate 91 H 03/15/19 15:48 Respiratory Rate 18 03/15/19 15:48 Blood Pressure 109/56 L 03/15/19 15:48 O2 Sat by Pulse Oximetry (%) 94 L 03/15/19 09:10 no fevers today Constitutional: Yes: Well Nourished, No Distress, Calm Eyes: Yes: Conjunctiva Clear, Other (left eyelid/periorbital area swollen, mildly pink) HENT: Yes: Normocephalic, Other (left frontoparietal wound with central soft black eschar, multiple punctate points draining yellow purulent fluid, +erythema , edema, minimally tender) Extremities: No: Cool, Cyanosis Integumentary: Yes: Erythema, Other (see above - wound at left forehead/ frontoparietal scalp - about 6 x 5cm) Wound/Incision: Yes: Open to air, Draining (purulent spots), Reddened, Other ( see above). No: Bleeding Neurological: Yes: Alert, Oriented Labs: CBC, BMP 03/15/19 06:35 03/15/19 06:00 wbc coming down Microbiology 03/13/19 15:43 Blood Culture - Preliminary Blood - Peripheral Venous NO GROWTH OBTAINED AFTER 48 HOURS, INCUBATION TO CONTINUE FOR 3 DAYS. 03/13/19 15:39 Blood Culture - Preliminary Blood - Peripheral Venous NO GROWTH OBTAINED AFTER 48 HOURS, INCUBATION TO CONTINUE FOR 3 DAYS. 03/13/19 02:16 Gram Stain - Final Head Wound Culture - Final Pseudomonas Aeruginosa Problem List - Problems (1) Cellulitis of scalp Assessment/Plan: plastic surgery consult noted wound cx + Pseudomonas, sensitive antibiotics, treatments per Dr. Cheung and ID will defer to plastics for ongoing management will sign off please call with additional questions Code(s): L03.811 - CELLULITIS OF HEAD [ANY PART, EXCEPT FACE] (2) Contact dermatitis due to adhesives Code(s): L23.1 - ALLERGIC CONTACT DERMATITIS DUE TO ADHESIVES Qualifiers: Contact dermatitis type: unspecified Qualified Code(s): L23.1 - Allergic contact dermatitis due to adhesives (3) Head and face pain Code(s): R51 - HEADACHE (4) Diabetes mellitus with skin complication, without long-term current use of insulin Code(s): E11.628 - TYPE 2 DIABETES MELLITUS WITH OTHER SKIN COMPLICATIONS Qualifiers: Diabetes mellitus type: type 2 Diabetes mellitus complication detail: with other skin complication Qualified Code(s): E11.628 - Type 2 diabetes mellitus with other skin complications (5) Hypertension Code(s): I10 - ESSENTIAL (PRIMARY) HYPERTENSION Qualifiers: Hypertension type: essential hypertension Qualified Code(s): I10 - Essential (primary) hypertension
[2019-03-15] MEDS: ATORVASTATIN CA 40 MG TABLET (FP) PO SCH (22:29)
[2019-03-16] MEDS ORDERED: DEXTROSE 5%-WATER - 50 ML IVPB ONE ×3 (01:52→16:35)
[2019-03-16] MEDS ORDERED: PIPERACILLIN/TAZOBACTAM 3.375 GM VIAL IVPB ONE ×3 (01:52→16:35)
[2019-03-16] MEDS: PIPERACILLIN/TAZOB 3.375 GM 3.375 GM in DEXTROSE 5%-WATER - 50 ML IVPB SCH ×3 (01:56→17:03)
[2019-03-16] MEDS: GENTAMICIN SO4 0.1% TOPICAL OINTMENT 15 GM/TUBE TUBE TP SCH ×3 (06:15→21:21)
[2019-03-16] MEDS: POLYMYXIN B SULFATE/TMP 10 ML OPHTHALMIC SOLUTION OU SCH ×5 (06:15→21:21)
[2019-03-16] MEDS: INSULIN SLIDING SCALE (NOVOLOG) 1 VIAL SQ SCH ×4 (06:16→21:29)
[2019-03-16 08:24] LABS: BASO % 1.2 % (0-2.0); EOS % 1.1 % (0-4.5); HEMATOCRIT 30.4 % (32.4-45.2); LYMPH % 23.2 % (8-40); MCH 27.5 pg (25.7-33.7); MCHC 32.9 g/dl (32.0-36.0); MEAN CELL VOLUME 83.6 fl (80-96); MEAN PLT VOLUME 9.5 fl (7.5-11.1); MONO % 15.4 % (3.8-10.2); NEUT % 59.1 % (42.8-82.8); PLATELET COUNT 459 K/MM3 (134-434); RBC 3.64 M/mm3 (3.60-5.2); WHITE BLOOD COUNT 7.3 K/mm3 (4.0-10.0)
[2019-03-16 08:31] LABS: ALBUMIN 2.1 g/dl (3.4-5.0); BILIRUBIN,TOTAL 1.2 mg/dL (0.2-1); BLOOD UREA NITROGEN 21.6 mg/dL (7-18); CALCIUM 9.7 mg/dL (8.5-10.1); CREATININE 0.8 mg/dL (0.55-1.3); MAGNESIUM 2.3 mg/dL (1.8-2.4); PHOSPHOROUS 3.6 mg/dL (2.5-4.9); POTASSIUM 4.2 mmol/L (3.5-5.1); TOT PROT 6.1 g/dl (6.4-8.2)
[2019-03-16] MEDS ORDERED: PT OWN MED DRAWER 7, Y5N ONE ×2 (09:14→14:04)
[2019-03-16] MEDS: CHLORTHALIDONE 25 MG TABLET PO SCH (09:56)
[2019-03-16] MEDS: LISINOPRIL 20 MG TABLET (FP) PO SCH (09:56)
[2019-03-16] MEDS: ACETAMINOPHEN 500 MG TABLET (FP) PO PRN ×2 (09:57→21:35)
[2019-03-16] MEDS: INSULIN (LEVEMIR) 100 UNITS/ML UNITS SQ SCH (09:58)
[2019-03-16] MEDS: ENOXAPARIN NA (PORCINE) 40 MG/0.4 ML DISP.SYRIN SQ SCH (09:59)
[2019-03-16] MEDS: SODIUM HYPOCHLORITE 0.25%- 473 ML BULK BOTTLE TP SCH (09:59)
[2019-03-16 11:34] LABS: ANISOCYTOSIS 0; MACROCYTOSIS 0; PLATELET ESTIMATE NORMAL
--- NOTE | 2019-03-16 12:40 | PN ---
Teaching Attending Note Name of Resident: Nii Mills ATTENDING PHYSICIAN STATEMENT I saw and evaluated the patient. I reviewed the resident's note and discussed the case with the resident. I agree with the resident's findings and plan as documented. SUBJECTIVE:eye swelling improved. pain only palpation. denies CP, SOB, fver, chills, N/V/C/D OBJECTIVE: Last Vital Signs Temp Pulse Resp BP Pulse Ox 97.5 F L 70 18 126/54 L 98 03/16/19 05:40 03/16/19 05:40 03/16/19 05:40 03/16/19 05:40 03/15/19 21:00 General NAD HEENT minimal periorbital swelling of the L eye. able to open and close without difficulty. EOMI L frontal scalp adjacent to hair line. with 5cm fluctuant region with central necrosis with some yellow drainage. area is tender ASSESSMENT AND PLAN: 73 year old female with history of DM 2, HLD, HTN, presents with scalp cellulitis s/p traumatic wig removal with tearing of skin due to glue, failed outpatient therapy with Clindamycin. 1. Scalp Cellulitis with abscess/Skin necrosis- failed outpatient treatment. Wcx +pseudomonas with amaro-sensitivity. on zosyn day 5. local wound care per plastics with dakins solution, gentamyicn ointment. clinically looks better today. will likely require half-way abx. will need to d/w ID. if does not respond may need surgical debridement. plastics on board. 2. Acute L conjuctiitis - no visual disturbance. cont with ggt Topical Polytrim drops. 3. DM 2 - uncontrolled. will increase levemir to 16 units. adjust as needed to optimize control. 4. HTN - Continue Lisinopril 40 mg QD, Chlorthalidone 25 mg QD, Metoprolol Succinate 50 mg QD. 5. HLD - continue Lipitor. 6. DVT Px - Lovenox SQ 7. spoke with daughter present at bedside. all questions answered.
--- NOTE | 2019-03-16 16:37 | PN ---
Physical Exam: SUBJECTIVE: 73 y/o F w left frontoparietal scalp wound and cellulitis from traumatic wig removal seen at bedside today. She states her eye is swellign but does not have difficulty moving eye or eye pain. She has no complaints about her vision. She reports only a little pain. She was seen by Plastic surgeon Dr. Cheung yesterday. She is also on IV antibiotics per ID. She denies NVFCD, blurred vision, pain moving the eye, and photophobia. OBJECTIVE: Vital Signs Period Temp Pulse Resp BP Sys/Marie Pulse Ox Last 24 Hr 97.5 F-98.7 F 70-92 18-20 122-130/48-65 98-99 GENERAL: The patient is awake, alert, and fully oriented, in no acute distress. HEAD: Normocephalic with fontoparietal necrotic skin areas, draining purulence in multiple small spots, now with blackened area of soft eschar centrally. EYES: LEFT eyelid is also edematous. PERRL, extraocular movements intact, sclera anicteric, conjunctiva clear. No ptosis. ENT: Ears normal, nares patent, oropharynx clear without exudates, moist mucous membranes. NECK: Trachea midline, full range of motion, supple. LUNGS: Breath sounds equal, clear to auscultation bilaterally, no wheezes, no crackles, no accessory muscle use. HEART: Regular rate and rhythm, S1, S2 without murmur, rub or gallop. ABDOMEN: Soft, nontender, nondistended, normoactive bowel sounds, no guarding, no rebound, no hepatosplenomegaly, no masses. EXTREMITIES: 2+ pulses, warm, well-perfused, no edema. NEUROLOGICAL: Cranial nerves II through XII grossly intact. Normal speech, gait not observed. PSYCH: Normal mood, normal affect. SKIN: Warm, dry, normal turgor, no rashes or lesions noted Laboratory Results - last 24 hr 03/15/19 03/16/19 03/16/19 22:24 06:13 07:30 WBC 7.3 RBC 3.64 Hgb 10.0 L Hct 30.4 L MCV 83.6 MCH 27.5 MCHC 32.9 RDW 13.0 Plt Count 459 H MPV 9.5 Absolute Neuts (auto) 4.3 Neutrophils % 59.1 Neutrophils % (Manual) 57.4 Band Neutrophils % 2.0 Lymphocytes % 23.2 D Lymphocytes % (Manual) 23.8 Monocytes % 15.4 H Monocytes % (Manual) 14 H Eosinophils % 1.1 Eosinophils % (Manual) 0.0 Basophils % 1.2 Basophils % (Manual) 1.0 Myelocytes % (Man) 1 Promyelocytes % (Man) 0 Blast Cells % (Manual) 0 Nucleated RBC % 0 Metamyelocytes 0 Hypochromia 0 Platelet Estimate Normal Polychromasia 0 Poikilocytosis 0 Anisocytosis 0 Microcytosis 0 Macrocytosis 0 Sodium Potassium Chloride Carbon Dioxide Anion Gap BUN Creatinine Est GFR (CKD-EPI)AfAm Est GFR (CKD-EPI)NonAf POC Glucometer 396 123 Random Glucose Calcium Phosphorus Magnesium Total Bilirubin AST ALT Alkaline Phosphatase Total Protein Albumin 03/16/19 03/16/19 07:30 11:08 WBC RBC Hgb Hct MCV MCH MCHC RDW Plt Count MPV Absolute Neuts (auto) Neutrophils % Neutrophils % (Manual) Band Neutrophils % Lymphocytes % Lymphocytes % (Manual) Monocytes % Monocytes % (Manual) Eosinophils % Eosinophils % (Manual) Basophils % Basophils % (Manual) Myelocytes % (Man) Promyelocytes % (Man) Blast Cells % (Manual) Nucleated RBC % Metamyelocytes Hypochromia Platelet Estimate Polychromasia Poikilocytosis Anisocytosis Microcytosis Macrocytosis Sodium 139 Potassium 4.2 Chloride 101 Carbon Dioxide 32 Anion Gap 6 L BUN 21.6 H Creatinine 0.8 Est GFR (CKD-EPI)AfAm 83.59 Est GFR (CKD-EPI)NonAf 72.12 POC Glucometer 313 Random Glucose 136 H Calcium 9.7 Phosphorus 3.6 Magnesium 2.3 Total Bilirubin 1.2 H AST 33 ALT 30 Alkaline Phosphatase 107 Total Protein 6.1 L Albumin 2.1 L Active Medications Acetaminophen (Tylenol -) 1,000 mg PO Q6H PRN PRN Reason: PAIN Last Admin: 03/16/19 21:35 Dose: 1,000 mg Atorvastatin Calcium (Lipitor -) 40 mg PO HS [facility] Last Admin: 03/16/19 21:21 Dose: 40 mg Chlorthalidone (Hygroton -) 25 mg PO DAILY [facility] Last Admin: 03/16/19 09:56 Dose: 25 mg Enoxaparin Sodium (Lovenox -) 40 mg SQ DAILY [facility] Last Admin: 03/16/19 09:59 Dose: 40 mg Gentamicin Sulfate (Garamycin 0.1% Ointment -) 1 applic TP TID [facility] Last Admin: 03/16/19 21:21 Dose: 1 applic Piperacillin Sod/Tazobactam (Sod 3.375 gm/ Dextrose) 50 mls @ 100 mls/hr IVPB Q8H-IV [facility]; Protocol Last Admin: 03/16/19 17:03 Dose: 100 mls/hr Insulin Aspart (Novolog Vial Sliding Scale -) 1 vial SQ ACHS [facility]; Protocol Last Admin: 03/16/19 21:29 Dose: 4 units Insulin Detemir (Levemir Vial) 16 units SQ DAILY [facility] Last Admin: 03/16/19 09:58 Dose: 16 units Lisinopril (Prinivil) 40 mg PO DAILY [facility] Last Admin: 03/16/19 09:56 Dose: 40 mg Metoprolol Succinate (Toprol Xl -) 50 mg PO DAILY [facility] Last Admin: 03/16/19 09:56 Dose: 50 mg Polymyxin/Trimethoprim Sulfate (Polytrim Opthalmic Solution -) 1 drop OU Q4HWA [facility] Last Admin: 03/16/19 21:21 Dose: 1 drop Sodium Hypochlorite (Dakin's Solution 0.25% (Half-Strength) -) 1 applic TP DAILY [facility] Last Admin: 03/16/19 09:59 Dose: 1 applic ASSESSMENT/PLAN: 73 y/o F w PMH DM 2, HLD, HTN, presents with scalp cellulitis s/p traumatic wig removal with tearing of skin due to glue, failed outpatient therapy with clindamycin. # Scalp Cellulitis/skin necrosis - Failed outpatient treatment - Wound cx +pseudomonas with amaro-sensitivity - zosyn day 5 - Local wound care per plastics with dakins solution, gentamyicn ointment - If does not respond may need surgical debridement. Plastics on board. - ID consulted (Dr. Cheung) # Acute LEFT conjuctiitis - No visual disturbance. - Cont with ggts - Topical Polytrim drops. # DM 2 - Uncontrolled. - Levemir increased 16 units - Adjust as needed to optimize control. # HTN - Continue Lisinopril 40 mg QD, Chlorthalidone 25 mg QD, Metoprolol Succinate 50 mg QD. # HLD - Cont. Lipitor # DVT prophylaxis - Lovenox # Disposition - Full code Nii Mills MD Visit type - Emergency Visit Emergency Visit: No - New Patient This patient is new to me today: No - Critical Care Critical Care patient: No - Discharge Referral Referred to [facility] No ATTENDING PHYSICIAN STATEMENT I saw and evaluated the patient. I reviewed the resident's note and discussed the case with the resident. I agree with the resident's findings and plan as documented. SUBJECTIVE: OBJECTIVE: ASSESSMENT AND PLAN:
[2019-03-16] MEDS: ATORVASTATIN CA 40 MG TABLET (FP) PO SCH (21:21)
[2019-03-17] MEDS ORDERED: DEXTROSE 5%-WATER - 50 ML IVPB ONE ×3 (02:37→17:58)
[2019-03-17] MEDS ORDERED: PIPERACILLIN/TAZOBACTAM 3.375 GM VIAL IVPB ONE ×3 (02:37→17:58)
[2019-03-17] MEDS: PIPERACILLIN/TAZOB 3.375 GM 3.375 GM in DEXTROSE 5%-WATER - 50 ML IVPB SCH ×3 (02:50→18:00)
[2019-03-17] MEDS: INSULIN SLIDING SCALE (NOVOLOG) 1 VIAL SQ SCH ×3 (06:48→16:31)
[2019-03-17] MEDS: POLYMYXIN B SULFATE/TMP 10 ML OPHTHALMIC SOLUTION OU SCH ×4 (06:53→18:01)
[2019-03-17] MEDS: GENTAMICIN SO4 0.1% TOPICAL OINTMENT 15 GM/TUBE TUBE TP SCH ×2 (06:53→15:19)
[2019-03-17 08:18] LABS: BASO % 0.8 % (0-2.0); EOS % 0.8 % (0-4.5); HEMATOCRIT 30.6 % (32.4-45.2); HEMOGLOBIN 10.3 GM/dL (10.7-15.3); LYMPH % 29.7 % (8-40); MCHC 33.5 g/dl (32.0-36.0); MEAN CELL VOLUME 83.6 fl (80-96); MEAN PLT VOLUME 9.3 fl (7.5-11.1); MONO % 12.2 % (3.8-10.2); NEUT % 56.5 % (42.8-82.8); RBC 3.66 M/mm3 (3.60-5.2); WHITE BLOOD COUNT 7.1 K/mm3 (4.0-10.0)
[2019-03-17 08:27] LABS: MAGNESIUM 2.1 mg/dL (1.8-2.4); PHOSPHOROUS 3.1 mg/dL (2.5-4.9)
[2019-03-17] MEDS ORDERED: PT OWN MED DRAWER 7, Y5N ONE (09:03)
[2019-03-17] MEDS: LISINOPRIL 20 MG TABLET (FP) PO SCH (09:30)
[2019-03-17] MEDS: CHLORTHALIDONE 25 MG TABLET PO SCH (09:31)
[2019-03-17] MEDS: ENOXAPARIN NA (PORCINE) 40 MG/0.4 ML DISP.SYRIN SQ SCH (09:37)
[2019-03-17] MEDS: ACETAMINOPHEN 500 MG TABLET (FP) PO PRN (09:40)
[2019-03-17] MEDS: INSULIN (LEVEMIR) 100 UNITS/ML UNITS SQ SCH (11:47)
[2019-03-17] MEDS: SODIUM HYPOCHLORITE 0.25%- 473 ML BULK BOTTLE TP SCH (11:49)
[2019-03-17] MEDS ORDERED: INSULIN (NOVOLOG) ASPART 100 UNITS/ML 10ML VIAL ONE ×3 (12:06→16:38)
[2019-03-17] MEDS ORDERED: INSULIN (LEVEMIR) 100 UNITS/ML UNITS SQ ONE (12:06)
[2019-03-17 12:35] LABS: ANISOCYTOSIS 1+; MACROCYTOSIS 0
--- NOTE | 2019-03-17 13:55 | PN ---
Teaching Attending Note Name of Resident: Nii Mills ATTENDING PHYSICIAN STATEMENT I saw and evaluated the patient. I reviewed the resident's note and discussed the case with the resident. I agree with the resident's findings and plan as documented. SUBJECTIVE:swelling resolved. pain improved. denies Cp, SOB, fever, chills, N/V/ C/D OBJECTIVE: Last Vital Signs Temp Pulse Resp BP Pulse Ox 98.2 F 89 18 121/61 99 03/17/19 09:00 03/17/19 09:00 03/17/19 09:00 03/17/19 09:00 03/16/19 21:00 General NAD HEENT minimal lower lid swelling of the L eye. EOMI L frontal scalp adjacent to hair line. with 5cm fluctuant region with central necrosis with some yellow drainage. area is tender ASSESSMENT AND PLAN: 73 year old female with history of DM 2, HLD, HTN, presents with scalp cellulitis s/p traumatic wig removal with tearing of skin due to glue, failed outpatient therapy with Clindamycin. 1. Scalp Cellulitis with abscess/Skin necrosis- failed outpatient treatment. Wcx +pseudomonas with amaro-sensitivity. on zosyn day 6. local wound care per plastics with dakins solution, gentamyicn ointment. clinically looks better today. will need to d/w ID about transitioning to po. start bacid to prevent diarrhea. if does not respond may need surgical debridement. plastics on board. 2. Acute L conjuctiitis - no visual disturbance. cont with ggt Topical Polytrim drops. 3. DM 2 - imporved cont increased dose of levemir. adjust as needed to optimize control. 4. HTN - Continue Lisinopril 40 mg QD, Chlorthalidone 25 mg QD, Metoprolol Succinate 50 mg QD. 5. HLD - continue Lipitor. 6. DVT Px - Lovenox SQ 7. spoke with daughter present at bedside. all questions answered.
[2019-03-17] MEDS ORDERED: LACTOBACILLUS ACIDOPHILUS 1 TABLET PO SCH (14:00)
--- NOTE | 2019-03-17 14:19 | PN ---
Progress Note, Physician History of Present Illness: NO COMPLAINTS OF FACIAL PAIN AFEBRILE - Current Medication List Current Medications: Active Medications Acetaminophen (Tylenol -) 1,000 mg PO Q6H PRN PRN Reason: PAIN Last Admin: 03/17/19 09:40 Dose: 1,000 mg Atorvastatin Calcium (Lipitor -) 40 mg PO HS [facility] Last Admin: 03/16/19 21:21 Dose: 40 mg Chlorthalidone (Hygroton -) 25 mg PO DAILY [facility] Last Admin: 03/17/19 09:31 Dose: 25 mg Enoxaparin Sodium (Lovenox -) 40 mg SQ DAILY [facility] Last Admin: 03/17/19 09:37 Dose: 40 mg Gentamicin Sulfate (Garamycin 0.1% Ointment -) 1 applic TP TID [facility] Last Admin: 03/17/19 06:53 Dose: 1 applic Piperacillin Sod/Tazobactam (Sod 3.375 gm/ Dextrose) 50 mls @ 100 mls/hr IVPB Q8H-IV [facility]; Protocol Last Admin: 03/17/19 09:29 Dose: 100 mls/hr Insulin Aspart (Novolog Vial Sliding Scale -) 1 vial SQ ACHS [facility]; Protocol Last Admin: 03/17/19 11:57 Dose: 6 units Insulin Detemir (Levemir Vial) 16 units SQ DAILY [facility] Last Admin: 03/17/19 11:47 Dose: 16 units Lactobacillus Acidophilus (Bacid -) 1 tab PO DAILY [facility] Lisinopril (Prinivil) 40 mg PO DAILY [facility] Last Admin: 03/17/19 09:30 Dose: 40 mg Metoprolol Succinate (Toprol Xl -) 50 mg PO DAILY [facility] Last Admin: 03/17/19 09:30 Dose: 50 mg Polymyxin/Trimethoprim Sulfate (Polytrim Opthalmic Solution -) 1 drop OU Q4HWA [facility] Last Admin: 03/17/19 11:50 Dose: 1 drop Sodium Hypochlorite (Dakin's Solution 0.25% (Half-Strength) -) 1 applic TP DAILY [facility] Last Admin: 03/17/19 11:49 Dose: 1 applic - Objective Vital Signs: Vital Signs Temperature 98.2 F 03/17/19 09:00 Pulse Rate 89 03/17/19 09:00 Respiratory Rate 18 03/17/19 09:00 Blood Pressure 121/61 03/17/19 09:00 O2 Sat by Pulse Oximetry (%) 99 03/16/19 21:00 Constitutional: Yes: No Distress Eyes: Yes: Conjunctiva Clear Cardiovascular: Yes: Regular Rate and Rhythm, S1, S2 Respiratory: Yes: CTA Bilaterally Gastrointestinal: Yes: Normal Bowel Sounds, Soft. No: Tenderness Integumentary: Yes: Other (+ DRY ESCHAR L FOREHEAD) Labs: CBC, BMP 03/17/19 07:10 03/16/19 07:30 Assessment/Plan SOFT TISSUE INFECTION L FOREHEAD IMPROVED + WOUND C/S PSEUDOMONAS MAY SUBSTITUTE LEVAQUIN 500MG QD X 7D
--- NOTE | 2019-03-17 17:11 | DS ---
Physical Exam: SUBJECTIVE: 73 y/o F w left frontoparietal scalp wound and cellulitis from traumatic wig removal seen at bedside today. Overnight there we no new complaints. Today she states her eye swelling has improved. She has no complaints about her vision. She has been switched to PO abx for dc. She denies NVFCD, blurred vision , pain moving the eye, and photophobia. OBJECTIVE: Vital Signs Period Temp Pulse Resp BP Sys/Marie Pulse Ox Last 24 Hr 97.7 F-98.7 F 80-89 18-22 118-141/61-78 99 PHYSICAL EXAM GENERAL: The patient is awake, alert, and fully oriented, in no acute distress. HEAD: Normocephalic with fontoparietal necrotic skin areas, draining purulence in multiple small spots, now with blackened area of soft eschar centrally. EYES: LEFT eyelid is also edematous. PERRL, extraocular movements intact, sclera anicteric, conjunctiva clear. No ptosis. ENT: Ears normal, nares patent, oropharynx clear without exudates, moist mucous membranes. NECK: Trachea midline, full range of motion, supple. LUNGS: Breath sounds equal, clear to auscultation bilaterally, no wheezes, no crackles, no accessory muscle use. HEART: Regular rate and rhythm, S1, S2 without murmur, rub or gallop. ABDOMEN: Soft, nontender, nondistended, normoactive bowel sounds, no guarding, no rebound, no hepatosplenomegaly, no masses. EXTREMITIES: 2+ pulses, warm, well-perfused, no edema. NEUROLOGICAL: Cranial nerves II through XII grossly intact. Normal speech, gait not observed. PSYCH: Normal mood, normal affect. SKIN: Warm, dry, normal turgor, no rashes or lesions noted except for head/CC LABS Laboratory Results - last 24 hr 03/16/19 03/17/19 03/17/19 21:28 06:46 07:10 WBC 7.1 RBC 3.66 Hgb 10.3 L Hct 30.6 L MCV 83.6 MCH 28.0 MCHC 33.5 RDW 13.0 Plt Count MPV 9.3 Absolute Neuts (auto) 4.0 Neutrophils % 56.5 Neutrophils % (Manual) 57.6 Band Neutrophils % 0.0 Lymphocytes % 29.7 D Lymphocytes % (Manual) 24.3 Monocytes % 12.2 H Monocytes % (Manual) 13 H Eosinophils % 0.8 Eosinophils % (Manual) 1.0 D Basophils % 0.8 Basophils % (Manual) 0.0 Myelocytes % (Man) 2 D Promyelocytes % (Man) 0 Blast Cells % (Manual) 0 Nucleated RBC % 0 Metamyelocytes 0 Hypochromia 0 Platelet Comment Present Polychromasia 0 Poikilocytosis 0 Anisocytosis 1+ Microcytosis 1+ Macrocytosis 0 POC Glucometer 223 172 Phosphorus Magnesium 03/17/19 03/17/19 03/17/19 07:10 11:56 16:26 WBC RBC Hgb Hct MCV MCH MCHC RDW Plt Count MPV Absolute Neuts (auto) Neutrophils % Neutrophils % (Manual) Band Neutrophils % Lymphocytes % Lymphocytes % (Manual) Monocytes % Monocytes % (Manual) Eosinophils % Eosinophils % (Manual) Basophils % Basophils % (Manual) Myelocytes % (Man) Promyelocytes % (Man) Blast Cells % (Manual) Nucleated RBC % Metamyelocytes Hypochromia Platelet Comment Polychromasia Poikilocytosis Anisocytosis Microcytosis Macrocytosis POC Glucometer 291 272 Phosphorus 3.1 Magnesium 2.1 HOSPITAL COURSE: Date of Admission:03/13/19 73 y/o F w PMH HTN, HLD, NIDDM w diabetic retinopathy s/p laser surgery whom presented to the ED on 03/13/19 c/o a LEFT frontoparietal scalp wound and cellulitis 2/2 traumatic wig removal. Adhesive glue applied on 01/26 and trauma incited 03/02. Pt seen prior 03/04 her son noted she had swelling in her left scalp and left eye. Pt came to our ER 03/06 where she received Benadryl, one dose of steroid, topical bacitracin. On 03/09 pt went to [facility] urgent care due to worsening swelling and was prescribed clindamycin 300 mg q8H (which she had been taking twice daily) and bactroban ointment BID for contact dermatitis. Pt returned to ER with worsening scalp pain and eye swelling, but did not have difficulty moving eye or eye pain. She denied NVFCD, blurred vision, pain moving the eye, and photophobia. CT showed cellulitis with underlying 2 cm fluid collection and WCX + pseudomonas. She was seen by Plastic surgeon Dr. Cheung, and surgeon Dr. Shannon who recommended Dakins solution for cleansing, Gentamycin ointment, and Polymixin eye drops. Pt was also on Zosyn IV antibiotics per ID, Dr. Culver. During visit pt benefited from the addition of Levemir for diabetic control. Pt was discharged on 03/17 with Levaquin 500 mg daily for 7 days, gentamicin ointment TID, polymyxin eye drops Q4H, Bacid daily , and Levamir 15 units every morning. Pt will follow up with PCP Dr. Solis, ID Dr. Culver, and PS Dr. Cheung in one week. Date of Discharge: 03/17/19 Nii Mills MD Minutes to complete discharge: 40 Discharge Summary Problems reviewed: Yes Reason For Visit: CELLULITIS Current Active Problems Cellulitis (Acute) Cellulitis of scalp (Acute) Contact dermatitis due to adhesives (Acute) Diabetes mellitus with skin complication, without long-term current use of insulin (Acute) Head and face pain (Acute) Hypertension (Acute) Condition: Improved - Instructions Diet, Activity, Other Instructions: YOUR VISIT You came to the hospital because you had a bruise on your head that did not heal on its own. You were admitted to the hospital for care of this concern. You were seen by an infectious disease specialist and given antibiotics. You were also seen by a general surgeon and a plastic surgeon who have recommended care for your bruise, described below. You may now return home. MEDICATIONS Please continue to take your home medications as prescribed. You have a *NEW* medication. Please take it as prescribed: - Levaquin 500 mg every day by mouth for the next 7 days. This is an antibiotic. - You will now need insulin levemir for care of your diabetes. Please take 15 units every morning. Please test you blood sugar before every meal and 2 hours after and record these values for your records. Please bring these records to your visit with the primary care provider. - Clean the affected area with Dakins Solution three times per day, prior to applying the Gentamicin ointment. - Continue applying Gentamicin ointment 3 times per day to the affected area until the wound has healed. - Continue Polymixin eye drops 1 drop to both eyes every 4 hours for 5 more days. - Continue to take probiotic, Bacid, one tablet every day. ADDITIONAL CARE Please make an appointment to see your primary care provider, Dr. Rubia Solis, 1 week from today. A referral to [facility] clinic (Dr. Garcia) has been provided, if unable to follow up with your primary care physician. Follow up with infectious disease physician, Dr. Culver, 1 week from today. Follow up with plastic surgeon, Dr. Cheung, 1 week from today. ADDITIONAL INFORMATION Please call 911 or come directly to the emergency department if you experience unusual headache, vision change, shortness of breath, chest pain, numbness, tingling, loss of alertness/awareness, loss of function, unusual bleeding or any alarming symptoms. Referrals: Brian Garcia MD [Staff Physician] - Srinivas Culver MD [Staff Physician] - Tamara Cheung MD [Staff Physician] - Rubia Solis MD [Primary Care Provider] - Disposition: HOME - Home Medications Comprehensive Discharge Medication List: Ambulatory Orders Atorvastatin Ca [Lipitor] 40 mg PO HS 03/06/19 Chlorthalidone 25 mg PO DAILY 03/06/19 Lisinopril [Prinivil -] 40 mg PO DAILY 03/06/19 Metoprolol Succinate 50 mg PO DAILY 03/06/19 metFORMIN HCL [Metformin HCl] 500 mg PO BID 03/06/19 Alcohol Antiseptic Pads [Alcohol Prep Pads] 1 each .ROUTE ASDIR #1 box 03/17/19 Blood Sugar Diagnostic [Test Strips] 1 each MC TID 30 Days #90 strip 03/17/19 Gentamicin 0.1% Ointment [Garamycin 0.1% Ointment -] 1 applic TP TID #1 tube 11/28 Insulin Detemir [Levemir Flextouch] 100 unit SQ DAILY 30 Days #15 insuln.pen 11/28 Lactobacillus Acidophilus [Bacid -] 1 tab PO DAILY 30 Days #30 tab 03/17/19 Lancets 1 each MC TID 30 Days #90 each 03/17/19 Levofloxacin [Levaquin] 500 mg PO DAILY 7 Days #7 tablet 03/17/19 Miscellaneous Medical Supply [Glucometer Device] 1 each .ROUTE ASDIR 30 Days #1 kit 03/17/19 Polymyxin B Sulfate/Tmp [Polytrim Opthalmic Solution -] 1 drop OU Q4HWA 30 Days #1 bottle 03/17/19 Sodium Hypochlorite [Dakin's Solution 0.25% (Half-Strength) -] 1 applic TP DAILY 30 Days #1 bottle 03/17/19 This patient is new to me today: No Emergency Visit: No Critical Care patient: No - Discharge Referral Referred to [facility] No ATTENDING PHYSICIAN STATEMENT I saw and evaluated the patient. I reviewed the resident's note and discussed the case with the resident. I agree with the resident's findings and plan as documented. SUBJECTIVE: OBJECTIVE: ASSESSMENT AND PLAN:
[2019-03-17 18:35] VITALS: BP 142/65; PULSE 76; TEMP 97.7
== END 2019-03-17 18:35 | disposition home or self-care (01) | DRG 383 ==
LOC: JER 01:05 → J5S 05:21
PROVIDERS: ADMIT Internal Medicine; ATTEND Internal Medicine
DX: L03.811 Cellulitis of head [any part, except face] (principal); I10 Essential (primary) hypertension; L23.1 Allergic contact dermatitis due to adhesives; H10.32 Unspecified acute conjunctivitis, left eye; E78.5 Hyperlipidemia, unspecified; I96 Gangrene, not elsewhere classified; E87.1 Hypo-osmolality and hyponatremia; E11.65 Type 2 diabetes mellitus with hyperglycemia; D72.829 Elevated white blood cell count, unspecified
CPT/HCPCS: 36415; 70450-TC; 71045-TC-FY; 80048; 80053; 82962; 83735; 84100; 85025; 85027; 87040; 87070; 87186; 87205; 93005; 93010; 97116-GP; 97161-GP; 99284-25; G0480